=== PATIENT | female | born 1965 | race Caucasian/White ===

== ENCOUNTER → 2018-03-30 | Outpatient (CLI) | payer BC ==
[~2018-03-30] MED LIST: ASCO1CAP3 PO; CHOL100027 PO; GLC500 PO; INSDGI SC; LEVO150T48 PO; LISI5TAB3 PO; LORA5TAB3 PO; MULT-506 PO; NVLGI SC; OMEGCAP2 PO; PRAV20TA PO; SERT50TA PO
--- NOTE | 2018-03-30 10:41 | DIAGNOSTIC IMAGING REPORT ---
R FOOT MIN 3 VIEWS ROUTINE CLINICAL HISTORY: CLOSED FRACTURE OF TARSAL BONE OF RIGHT FOOT COMPARISON: None. DISCUSSION: The bones and joint spaces appear intact. There is no evidence of fracture, dislocation or bony disease. There is no evidence for soft tissue swelling. IMPRESSION: Negative study. Small heel spur. The above report was generated using voice recognition software. It may contain grammatical, syntax or spelling errors. Electronically signed by: Ramirez Red M.D. 03/30/2018 10:39 AM Dictated Date/Time: 03/30/2018 10:38 AM
== END | disposition home or self-care (01) ==
LOC: C.RAD1850 10:16
PROVIDERS: ATTEND Family Medicine
DX: S92.201A Fracture of unspecified tarsal bone(s) of right foot, initial encounter for closed fracture (principal); X58.XXXA Exposure to other specified factors, initial encounter; M77.31 Calcaneal spur, right foot

== ENCOUNTER 2018-10-29 01:03 | Inpatient (IN) ==
[2018-10-29] MEDS ORDERED: KETOROLAC TROMETHAMINE 15 MG/ML VIAL IV STA (01:26)
[2018-10-29] MEDS ORDERED: ONDANSETRON INJ 2 MG/ML 2 ML VIAL IV STA (01:26)
[2018-10-29] MEDS ORDERED: SODIUM CHLORIDE 0.9% 1000ML 1,000 ML IV SCH (01:30)
--- NOTE | 2018-10-29 01:31 | Emergency Department Note ---
History of Present Illness General Chief complaint: Nausea Stated complaint: NAUSEA,BLOATED,ABD PAIN,LOW BACK PAIN Source: patient Mode of arrival: ambulatory Limitations: no limitations History of Present Illness Maximum Pain Intensity: 8 This patient is a 52-year-old female who presents to the emergency department complaining of abdominal pain and bloating. The patient reports that her symptoms started 3 days ago. She reports that she woke up in the middle of the night due to abdominal pain and bloating. She states that over the next few days, her symptoms were mild and she had some diarrhea. She states that throughout the day today, she had worsening of her symptoms. She has had a decreased appetite. She reports that she ate some soup for dinner and vomited afterward. She has tried Maalox for her symptoms without any improvement. She reports her symptoms seem to be slightly worsened with eating. She reports a history of IBS. She has a history of exploratory laparoscopy for endometriosis and 2 C-sections. She denies any other abdominal surgeries or issues. She rates her overall discomfort an 8/10. She denies any urinary symptoms or fevers. Home Medications Home Medications Medication Instructions Recorded Confirmed Type aspirin 81 mg PO DAILY 10/29/18 10/29/18 History cholecalciferol (vitamin D3) 2,000 unit PO DAILY 10/29/18 10/29/18 History [Vitamin D3] insulin aspart U-100 [Novolog 0 unit SUBCUT DIRECTED 10/29/18 10/29/18 History Flexpen U-100 Insulin] levothyroxine 150 mcg PO 6XWK 10/29/18 10/29/18 History levothyroxine 200 mcg PO DIRECTED 10/29/18 10/29/18 History lisinopril 40 mg PO DAILY 10/29/18 10/29/18 History metformin 1,000 mg PO BID 10/29/18 10/29/18 History multivitamin 1 tab PO DAILY 10/29/18 10/29/18 History omega 5-xlh-eld-fish oil [[place]-3] 1 cap PO DAILY 10/29/18 10/29/18 History pravastatin [Pravachol] 40 mg PO DAILY 10/29/18 10/29/18 History sertraline 100 mg PO DAILY 10/29/18 10/29/18 History Allergies Allergy/AdvReac Type Severity Reaction Status Date / Time clavulanic acid Allergy Mild liver Verified 10/29/18 02:04 damage Penicillins Allergy Mild liver Verified 10/29/18 02:04 damage BETALACTAMASEIN Allergy Mild Unknown Uncoded 10/29/18 02:04 Past Med/Surg History Medical History Hyperlipemia Hypertension Hypothyroid Type 2 diabetes mellitus insulin dependent Social History marital status: Current Living Situation: Family Feels Safe at Home: Yes Smoking Status: Never smoker Review of Systems A total of 10 systems reviewed and were otherwise negative Physical Exam Vital Signs Vital Signs - 24 hr 10/29/18 01:11 10/29/18 02:52 10/29/18 04:30 Temperature 36.8 C Temperature Source Oral Sepsis Recent Fever Within 48 Hours No Sepsis Action Taken by Nursing No Action Required Pulse Rate 89 Pulse Rate [Right Finger] 85 82 Pulse Rhythm [Right Finger] Regular Regular Pulse Strength [Right Finger] Normal Normal Respiratory Rate 18 18 16 Respiratory Effort / Characteristics Non-Labored Non-Labored Non-Labored Respiratory Depth Normal Normal Normal Respiratory Pattern Regular Blood Pressure 144/80 H Blood Pressure [Left Arm] 128/66 124/75 Blood Pressure Mean 101 Blood Pressure Mean [Left Arm] 86 91 Blood Pressure Position Sitting Blood Pressure Position [Left Arm] Sitting Lying Pulse Oximetry 95 96 96 Oxygen Delivery Method Room Air Room Air Room Air 10/29/18 05:09 Temperature Temperature Source Sepsis Recent Fever Within 48 Hours Sepsis Action Taken by Nursing Pulse Rate 85 Pulse Rate [Right Finger] Pulse Rhythm [Right Finger] Pulse Strength [Right Finger] Respiratory Rate 16 Respiratory Effort / Characteristics Respiratory Depth Respiratory Pattern Blood Pressure 124/75 Blood Pressure [Left Arm] Blood Pressure Mean Blood Pressure Mean [Left Arm] Blood Pressure Position Blood Pressure Position [Left Arm] Pulse Oximetry 96 Oxygen Delivery Method Room Air VITALS: Vitals are noted on the nurse's note and reviewed by myself. Vital signs stable. GENERAL: This is a 52-year-old female, in no acute distress, nondiaphoretic, well-developed well-nourished. SKIN: The skin was without rashes. EARS: External auditory canals clear, tympanic membranes pearly lemus without erythema or effusion bilaterally. EYES: Pupils equal round and reactive to light and accommodation. Conjunctivae without injection, sclerae without icterus. MOUTH: Mucous membranes moist. Tonsils are not enlarged. Pharynx without erythema or exudate. NECK: Supple without nuchal rigidity. No lymphadenopathy. HEART: Regular rate and rhythm without murmurs gallops or rubs. LUNGS: Clear to auscultation bilaterally without wheezes, rales or rhonchi. ABDOMEN: Positive bowel sounds x 4.. Soft, mild generalized tenderness to palpation. No guarding or rebound tenderness. NEURO: Patient was alert and oriented to person place and time. Course Administered Medications Discontinued Medications Sodium Chloride (Nss 1000ml) 1,000 mls @ 999 mls/hr IV .[id number] DENISE Stop: 10/29/18 02:30 Last Infusion: 10/29/18 04:01 Dose: 0 mls/hr Documented by: [id number] Admin: 10/29/18 01:47 Dose: 999 mls/hr Documented by: [id number] Ciprofloxacin (Cipro) 400 mg in 200 mls @ 200 mls/hr IV NOW STA Stop: 10/29/18 04:39 Last Admin: 10/29/18 03:58 Dose: 200 mls/hr Documented by: [id number] Metronidazole (Flagyl) 500 mg in 100 mls @ 100 mls/hr IV NOW STA Stop: 10/29/18 04:39 Last Admin: 10/29/18 03:58 Dose: 100 mls/hr Documented by: [id number] Ioversol (Optiray 320 100ml) 100 ml IV ONCE PRN PRN Reason: Interaction Checking Stop: 11/02/18 02:49 Last Admin: 10/29/18 02:50 Dose: 93 ml Documented by: [id number] Ketorolac Tromethamine (Toradol) 15 mg IV NOW STA Stop: 10/29/18 01:27 Last Admin: 10/29/18 01:47 Dose: 15 mg Documented by: [id number] Ondansetron HCl (Zofran) 4 mg IV NOW STA Stop: 10/29/18 01:27 Last Admin: 10/29/18 01:47 Dose: 4 mg Documented by: [id number] Medical Decision Making Differential Diagnosis Differential diagnosis includes pancreatitis, cholecystitis, bowel obstruction, malignancy/mass, enteritis, PUD, among others. Home Medications Current Medication List: was personally reviewed by me Laboratory Data Attestation: I reviewed the patient's lab results. Result diagrams: 10/29/18 01:45 10/29/18 01:45 Lab Results 10/29/18 10/29/18 10/29/18 Range/Units 01:42 01:45 01:45 WBC 10.45 (4.8-10.8) K/uL RBC 5.02 (4.2-5.4) M/uL Hgb 14.6 (12.0-16.0) g/dL Hct 41.7 (37-47) % MCV 83.1 (80-100) fL MCH 29.1 (25-34) pg MCHC 35.0 (32-36) g/dL RDW Std Deviation 40.0 (36.4-46.3) fL RDW Coeff of [place] 13.3 (11.5-14.5) % Plt Count 308 (130-400) K/uL MPV 9.8 (7.4-10.4) fL Immature Gran % (Auto) 0.3 % Neut % (Auto) 73.9 % Lymph % (Auto) 9.4 % [place] % (Auto) 14.7 % Eos % (Auto) 1.6 % Baso % (Auto) 0.1 % Immature Gran # (Auto) 0.03 H (0.00-0.02) K/uL Neut # (Auto) 7.72 H (1.4-6.5) K/uL Lymph # (Auto) 0.98 L (1.2-3.4) K/uL [place] # (Auto) 1.54 H (0.11-0.59) K/uL Eos # (Auto) 0.17 (0-0.5) K/uL Baso # (Auto) 0.01 (0-0.2) K/uL PT 10.1 (9.0-12.0) Seconds INR 1.0 (0.9-1.1) APTT 25.1 (21.0-31.0) Seconds PTT Ratio 0.9 Sodium 140 (136-145) mmol/L Potassium 3.8 (3.5-5.1) mmol/L Chloride 106 (98-107) mmol/L Carbon Dioxide 28 (21-32) mmol/L Anion Gap 6.0 (3-11) BUN 12 (7-18) mg/dl Creatinine 0.72 (0.6-1.2) mg/dl Est Cr Clr Drug Dosing 102.0 ml/min Est GFR ( Amer) 110.0 Est GFR (Non-Af Amer) 94.9 BUN/Creatinine Ratio 17.1 (10-20) Glucose 138 H (70-99) mg/dl Calcium 8.7 (8.5-10.1) mg/dl Total Bilirubin 1.9 H (0.2-1) mg/dl AST 1028 H (15-37) U/L ALT 613 H (12-78) U/L Alkaline Phosphatase 200 H (45-117) U/L Total Protein 7.2 (6.4-8.2) gm/dl Albumin 3.4 (3.4-5.0) gm/dl Globulin 3.8 (2.5-4.0) gm/dl Albumin/Globulin Ratio 0.9 (0.9-2) Lipase 105 (73-393) U/L Urine Color Urine Appearance (Clear) Urine pH (4.5-7.5) Ur Specific [place] (1.000-1.030) Urine Protein (Negative) Urine Glucose (UA) (Negative) Urine Ketones (Negative) Urine Blood (Negative) Urine Nitrite (Negative) Urine Bilirubin (Negative) Urine Urobilinogen (Negative) Ur Leukocyte Esterase (Negative) Urine WBC (Auto) (0-5) /hpf Urine RBC (Auto) (0-4) /hpf U Hyaline Cast (Auto) (0-5) /lpf U Epithel Cells (Auto) (0-5) /lpf Urine Bacteria (Auto) (Negative) 10/29/18 Range/Units 02:50 WBC (4.8-10.8) K/uL RBC (4.2-5.4) M/uL Hgb (12.0-16.0) g/dL Hct (37-47) % MCV (80-100) fL MCH (25-34) pg MCHC (32-36) g/dL RDW Std Deviation (36.4-46.3) fL RDW Coeff of [place] (11.5-14.5) % Plt Count (130-400) K/uL MPV (7.4-10.4) fL Immature Gran % (Auto) % Neut % (Auto) % Lymph % (Auto) % [place] % (Auto) % Eos % (Auto) % Baso % (Auto) % Immature Gran # (Auto) (0.00-0.02) K/uL Neut # (Auto) (1.4-6.5) K/uL Lymph # (Auto) (1.2-3.4) K/uL [place] # (Auto) (0.11-0.59) K/uL Eos # (Auto) (0-0.5) K/uL Baso # (Auto) (0-0.2) K/uL PT (9.0-12.0) Seconds INR (0.9-1.1) APTT (21.0-31.0) Seconds PTT Ratio Sodium (136-145) mmol/L Potassium (3.5-5.1) mmol/L Chloride (98-107) mmol/L Carbon Dioxide (21-32) mmol/L Anion Gap (3-11) BUN (7-18) mg/dl Creatinine (0.6-1.2) mg/dl Est Cr Clr Drug Dosing ml/min Est GFR ( Amer) Est GFR (Non-Af Amer) BUN/Creatinine Ratio (10-20) Glucose (70-99) mg/dl Calcium (8.5-10.1) mg/dl Total Bilirubin (0.2-1) mg/dl AST (15-37) U/L ALT (12-78) U/L Alkaline Phosphatase (45-117) U/L Total Protein (6.4-8.2) gm/dl Albumin (3.4-5.0) gm/dl Globulin (2.5-4.0) gm/dl Albumin/Globulin Ratio (0.9-2) Lipase (73-393) U/L Urine Color Dark Yellow Urine Appearance Cloudy H (Clear) Urine pH 7.5 (4.5-7.5) Ur Specific [place] 1.024 (1.000-1.030) Urine Protein Negative (Negative) Urine Glucose (UA) Negative (Negative) Urine Ketones Negative (Negative) Urine Blood Negative (Negative) Urine Nitrite Positive H (Negative) Urine Bilirubin 1+ H (Negative) Urine Urobilinogen Negative (Negative) Ur Leukocyte Esterase 2+ H (Negative) Urine WBC (Auto) >30 H (0-5) /hpf Urine RBC (Auto) 0-4 (0-4) /hpf U Hyaline Cast (Auto) 10-30 H (0-5) /lpf U Epithel Cells (Auto) 10-20 H (0-5) /lpf Urine Bacteria (Auto) 2+ H (Negative) Imaging Data Attestation: I personally reviewed and interpreted this imaging study as follows: Radiologist's Impression: CT ABDOMEN & PELVIS With Contrast: Cholelithiasis without cholecystitis. The common bile duct is normal in caliber. There is a faint calcification possibly within the distal common bile duct measuring 4 mm which could represent choledocholithiasis. Consider MRCP or ERCP. No pancreatitis. Scattered areas of lobulated low-density in the left hepatic lobe and caudate which could represent focal fatty deposition. Normal appendix. No bowel wall thickening or obstruction. No free air or free fluid. Radiologist: Abdiaziz Ramirez MD Blood Pressure Blood Pressure Findings: Normal blood pressure Blood Pressure Disposition: did not require urgent referral MDM Narrative The patient is a 52-year-old female who presents today complaining of abdominal pain. Labs revealed WBC count in the upper limits of normal. LFTs are elevated, with AST 1028, ALT 613, alkaline phosphatase 200 and total bilirubin 1.9. CT shows evidence of cholelithiasis and possible stone within the common bile duct. This finding along with her transaminitis does suggest choledocholithiasis. Patient will be admitted for this. She also has evidence of urinary tract infection. I spoke with the pharmacist regarding antibiotic choice given patient's allergies and they recommended ciprofloxacin and Flagyl. Patient was given initial doses of these. She did receive IV fluids, Zofran and Toradol with improvement of symptoms. She will be admitted to the [facility] service for further evaluation and care. Impression & Plan Choledocholithiasis Discharge Plan Visit Data Chief Complaint: Nausea Stated Complaint: NAUSEA,BLOATED,ABD PAIN,LOW BACK PAIN ED Provider: Jorge Sterling ED Midlevel Provider: Tash Wilson Discharge Problem: Choledocholithiasis Discharge Instructions Interventions: ED Discharge Assessment Last Done: 10/29/18 05:09
[2018-10-29 01:54] LABS: Basophils # (auto) 0.01 K/uL (0-0.2); Basophils % (auto) 0.1 %; Eosinophils # (auto) 0.17 K/uL (0-0.5); Eosinophils % (auto) 1.6 %; Hematocrit (blood only) 41.7 % (37-47); Hemoglobin 14.6 g/dL (12.0-16.0); Immature Granulocytes # (auto) 0.03 K/uL (0.00-0.02); Immature Granulocytes % (auto) 0.3 %; Lymphocytes # (auto) 0.98 K/uL (1.2-3.4); Lymphocytes % (auto) 9.4 %; Mean Corpuscular Volume 83.1 fL (80-100); Mean Platelet Volume 9.8 fL (7.4-10.4); Monocytes # (auto) 1.54 K/uL (0.11-0.59); Monocytes % (auto) 14.7 %; Neutrophils # (auto) 7.72 K/uL (1.4-6.5); Neutrophils % (auto) 73.9 %; Platelet Count 308 K/uL (130-400); RDW Coefficient of Variation 13.3 % (11.5-14.5); Red Blood Count 5.02 M/uL (4.2-5.4); White Blood Count 10.45 K/uL (4.8-10.8)
[2018-10-29 02:15] LABS: Albumin Level 3.4 gm/dl (3.4-5.0); BUN Creatinine Ratio 17.1 (10-20); Calcium 8.7 mg/dl (8.5-10.1); Est GFR (Non-African American) 94.9; Potassium 3.8 mmol/L (3.5-5.1)
[2018-10-29 02:23] LABS: Albumin Globulin Ratio 0.9 (0.9-2); Bilirubin,Total 1.9 mg/dl (0.2-1); Globulin 3.8 gm/dl (2.5-4.0); Total Protein 7.2 gm/dl (6.4-8.2)
[2018-10-29] MEDS ORDERED: IOVERSOL 100ml IV PRN (02:50)
[2018-10-29 03:12] LABS: Appearance Urine Cloudy (Clear); Bacteria Urine Automated 2+ (Negative); Blood Urine Negative (Negative); Color Urine Dark Yellow; Glucose Urine UA Negative (Negative); Ketones Urine Negative (Negative); Leukocyte Esterase Urine 2+ (Negative); Nitrite Urine Positive (Negative); RBC Urine Automated 0-4 /hpf (0-4); Specific Gravity Urine 1.024 (1.000-1.030); Urobilinogen Urine Negative (Negative); WBC Urine Automated >30 /hpf (0-5); pH Urine 7.5 (4.5-7.5)
[2018-10-29 03:18] LABS: Bilirubin Urine 1+ (Negative); Ictotest Urine Positive (Negative); Protein Urine Negative (Negative)
[2018-10-29 03:34] LABS: Partial Thromboplastin Ratio 0.9; Partial Thromboplastin Time 25.1 Seconds (21.0-31.0); Prothrombin Time 10.1 Seconds (9.0-12.0)
[2018-10-29] MEDS ORDERED: metroNIDAZOLE 500 MG/100 ML BAG IV STA (03:40)
[2018-10-29] MEDS ORDERED: CIPROFLOXACIN 400 MG/200 ML BAG IV STA (03:40)
--- NOTE | 2018-10-29 05:24 | History & Physical Report ---
Date of Service October 29, 2018 Assessment & Plan (1) Choledocholithiasis with obstruction: Choledocholithiasis/abnormal liver function tests/normal lipase-- Admit to [facility]. NPO NSS + KCl 20 mEq at 100 mils per hour Continue Cipro 400 mg IV every 12 hours and Flagyl 500 mg IV every 8 hours begun in ED. Morphine sulfate 4 mg IV every 3 hours as needed severe pain. Pantoprazole 40 mg IV daily. Zofran 4 mg IV every 6 hours as needed. Order an MRCP to be done now. Serial CBC with differential, chemistry profile and magnesium levels. Consult gastroenterology Dr. Evans regarding possible ERCP. Present on Admission?: Yes (2) Abnormal liver function tests: See above. Present on Admission?: Yes (3) Insulin-requiring or dependent type II diabetes mellitus: Hold metformin. Placed on Accu-Cheks before meals and at bedtime with NovoLog coverage per scale. Present on Admission?: Yes (4) Hypothyroidism (acquired): Hold oral levothyroxine. Start levothyroxine 75 mcg IV daily if remains NPO. Present on Admission?: Yes (5) Hypertension: Hold aspirin 81 mg daily and lisinopril 40 mg p.o. daily while n.p.o. Hydralazine 10 mg IV every 4 hours as needed systolic blood pressure above 160 Present on Admission?: Yes (6) Hyperlipidemia: Hold pravastatin 40 mg p.o. daily while n.p.o. Present on Admission?: Yes (7) Depression: Hold sertraline 100 mg p.o. daily while n.p.o. Present on Admission?: Yes History of Present Illness Chief Complaint: The patient presents to the emergency department with worsening abdominal discomfort and bloating over the past week, with an episode of nausea and vomiting tonight, that led to her visit to the ED. Primary Care Provider: Magnus Donald The patient is a 52-year-old female with a past medical history including diabetes mellitus, hypertension, hypothyroidism, hyperlipidemia and depression, who presents to the emergency department with 1 week of worsening GI symptoms of abdominal distention, and bloating, with and episode of nausea and vomiting today prior to arrival. She has not had any recent travels or sick exposures. She has not had these type of symptoms in the past. She has not eaten any new or questionable food intake. She did have the beginning of loose stools over the past 3 days. Allergies Allergy/AdvReac Type Severity Reaction Status Date / Time clavulanic acid Allergy Mild liver Verified 10/29/18 02:04 damage Penicillins Allergy Mild liver Verified 10/29/18 02:04 damage BETALACTAMASEIN Allergy Mild Unknown Uncoded 10/29/18 02:04 Home Medications Home Medications Medication Instructions Recorded Confirmed Type aspirin 81 mg PO DAILY 10/29/18 10/29/18 History cholecalciferol (vitamin D3) 2,000 unit PO DAILY 10/29/18 10/29/18 History [Vitamin D3] insulin aspart U-100 [Novolog 0 unit SUBCUT DIRECTED 10/29/18 10/29/18 History Flexpen U-100 Insulin] levothyroxine 150 mcg PO 6XWK 10/29/18 10/29/18 History levothyroxine 200 mcg PO DIRECTED 10/29/18 10/29/18 History lisinopril 40 mg PO DAILY 10/29/18 10/29/18 History metformin 1,000 mg PO BID 10/29/18 10/29/18 History multivitamin 1 tab PO DAILY 10/29/18 10/29/18 History omega 4-fcz-aeq-fish oil [[place]-3] 1 cap PO DAILY 10/29/18 10/29/18 History pravastatin [Pravachol] 40 mg PO DAILY 10/29/18 10/29/18 History sertraline 100 mg PO DAILY 10/29/18 10/29/18 History Past Med/Surg History Medical History Hyperlipemia Hypertension Hypothyroid Type 2 diabetes mellitus insulin dependent Social History marital status: Current Living Situation: Family Feels Safe at Home: Yes Smoking Status: Never smoker Review of Systems The patient denies chest pain, palpitations, shortness of breath, dyspnea on exertion, cough, lower extremity swelling, sore throat, fevers, chills, sweats, blood in urine or stool, dysuria, urinary frequency or urgency, lightheadedness, dizziness, headache, memory loss, loss of consciousness, rash, abnormal bruising or bleeding, imbalance, focal or generalized weakness, numbness or tingling in arms or legs, generalized arthralgias or myalgias, back or neck pain, or night sweats. The review of systems is otherwise negative other than for that already noted above, and at least 10 systems have been reviewed. Physical Exam Vital Signs (Past 24 Hours): Last Vital Signs Temp 36.8 C 10/29/18 01:11 Pulse 82 10/29/18 04:30 Resp 16 10/29/18 04:30 BP 124/75 10/29/18 04:30 Pulse Ox 96 10/29/18 04:30 Physical Exam: The patient is awake, alert and oriented 3, well developed and well nourished, normocephalic and atraumatic, lying in bed and in no acute distress. HEENT--PERRL, EOMI, mucous membranes and oropharynx dry. Neck--supple. No JVD. No bruits. Thyroid normal, trachea midline, no adenopathy. Heart--normal S1 and S2. No murmurs, rubs or gallops. Lungs--clear bilaterally, no respiratory distress, no accessory muscle use. Abdomen--normal bowel sounds and soft. Mild epigastric right upper quadrant tenderness. Mildly distended and tympanitic. Extremities--no cyanosis or clubbing. No edema. There are good distal pulses b/l. Dermatologic--normal skin turgor, normal color, no abnormal lymph nodes, no rash. Neurologic--cranial nerves II through XII grossly intact. Rheumatologic--normal range of motion. Psychiatric--normal affect. Results & Data Laboratory Results Laboratory Results WBC 10.45 K/uL (4.8-10.8) 10/29/18 01:45 RBC 5.02 M/uL (4.2-5.4) 10/29/18 01:45 Hgb 14.6 g/dL (12.0-16.0) 10/29/18 01:45 Hct 41.7 % (37-47) 10/29/18 01:45 MCV 83.1 fL (80-100) 10/29/18 01:45 MCH 29.1 pg (25-34) 10/29/18 01:45 MCHC 35.0 g/dL (32-36) 10/29/18 01:45 RDW Std Deviation 40.0 fL (36.4-46.3) 10/29/18 01:45 RDW Coeff of [place] 13.3 % (11.5-14.5) 10/29/18 01:45 Plt Count 308 K/uL (130-400) 10/29/18 01:45 MPV 9.8 fL (7.4-10.4) 10/29/18 01:45 Immature Gran % (Auto) 0.3 % 10/29/18 01:45 Neut % (Auto) 73.9 % 10/29/18 01:45 Lymph % (Auto) 9.4 % 10/29/18 01:45 [place] % (Auto) 14.7 % 10/29/18 01:45 Eos % (Auto) 1.6 % 10/29/18 01:45 Baso % (Auto) 0.1 % 10/29/18 01:45 Immature Gran # (Auto) 0.03 K/uL (0.00-0.02) H 10/29/18 01:45 Neut # (Auto) 7.72 K/uL (1.4-6.5) H 10/29/18 01:45 Lymph # (Auto) 0.98 K/uL (1.2-3.4) L 10/29/18 01:45 [place] # (Auto) 1.54 K/uL (0.11-0.59) H 10/29/18 01:45 Eos # (Auto) 0.17 K/uL (0-0.5) 10/29/18 01:45 Baso # (Auto) 0.01 K/uL (0-0.2) 10/29/18 01:45 PT 10.1 Seconds (9.0-12.0) 10/29/18 01:42 INR 1.0 (0.9-1.1) 10/29/18 01:42 APTT 25.1 Seconds (21.0-31.0) 10/29/18 01:42 PTT Ratio 0.9 10/29/18 01:42 Sodium 140 mmol/L (136-145) 10/29/18 01:45 Potassium 3.8 mmol/L (3.5-5.1) 10/29/18 01:45 Chloride 106 mmol/L (98-107) 10/29/18 01:45 Carbon Dioxide 28 mmol/L (21-32) 10/29/18 01:45 Anion Gap 6.0 (3-11) 10/29/18 01:45 BUN 12 mg/dl (7-18) 10/29/18 01:45 Creatinine 0.72 mg/dl (0.6-1.2) 10/29/18 01:45 Est Cr Clr Drug Dosing 102.0 ml/min 10/29/18 01:45 Est GFR ( Amer) 110.0 10/29/18 01:45 Est GFR (Non-Af Amer) 94.9 10/29/18 01:45 BUN/Creatinine Ratio 17.1 (10-20) 10/29/18 01:45 Glucose 138 mg/dl (70-99) H 10/29/18 01:45 Calcium 8.7 mg/dl (8.5-10.1) 10/29/18 01:45 Total Bilirubin 1.9 mg/dl (0.2-1) H 10/29/18 01:45 AST 1028 U/L (15-37) H 10/29/18 01:45 ALT 613 U/L (12-78) H 10/29/18 01:45 Alkaline Phosphatase 200 U/L (45-117) H 10/29/18 01:45 Total Protein 7.2 gm/dl (6.4-8.2) 10/29/18 01:45 Albumin 3.4 gm/dl (3.4-5.0) 10/29/18 01:45 Globulin 3.8 gm/dl (2.5-4.0) 10/29/18 01:45 Albumin/Globulin Ratio 0.9 (0.9-2) 10/29/18 01:45 Lipase 105 U/L (73-393) 10/29/18 01:45 Urine Color Dark Yellow 10/29/18 02:50 Urine Appearance Cloudy (Clear) H 10/29/18 02:50 Urine pH 7.5 (4.5-7.5) 10/29/18 02:50 Ur Specific [place] 1.024 (1.000-1.030) 10/29/18 02:50 Urine Protein Negative (Negative) 10/29/18 02:50 Urine Glucose (UA) Negative (Negative) 10/29/18 02:50 Urine Ketones Negative (Negative) 10/29/18 02:50 Urine Blood Negative (Negative) 10/29/18 02:50 Urine Nitrite Positive (Negative) H 10/29/18 02:50 Urine Bilirubin 1+ (Negative) H 10/29/18 02:50 Urine Urobilinogen Negative (Negative) 10/29/18 02:50 Ur Leukocyte Esterase 2+ (Negative) H 10/29/18 02:50 Urine WBC (Auto) >30 /hpf (0-5) H 10/29/18 02:50 Urine RBC (Auto) 0-4 /hpf (0-4) 10/29/18 02:50 U Hyaline Cast (Auto) 10-30 /lpf (0-5) H 10/29/18 02:50 U Epithel Cells (Auto) 10-20 /lpf (0-5) H 10/29/18 02:50 Urine Bacteria (Auto) 2+ (Negative) H 10/29/18 02:50 Medications Administered Home Medications Medication Instructions Recorded Confirmed aspirin 81 mg PO DAILY 10/29/18 10/29/18 cholecalciferol (vitamin D3) 2,000 unit PO DAILY 10/29/18 10/29/18 [Vitamin D3] insulin aspart U-100 [Novolog 0 unit SUBCUT DIRECTED 10/29/18 10/29/18 Flexpen U-100 Insulin] levothyroxine 150 mcg PO 6XWK 10/29/18 10/29/18 levothyroxine 200 mcg PO DIRECTED 10/29/18 10/29/18 lisinopril 40 mg PO DAILY 10/29/18 10/29/18 metformin 1,000 mg PO BID 10/29/18 10/29/18 multivitamin 1 tab PO DAILY 10/29/18 10/29/18 omega 8-lzo-dym-fish oil [[place]-3] 1 cap PO DAILY 10/29/18 10/29/18 pravastatin [Pravachol] 40 mg PO DAILY 10/29/18 10/29/18 sertraline 100 mg PO DAILY 10/29/18 10/29/18 Code Status & VTE Plan Code Status Full code VTE Prophylaxis Plan VTE Prophylaxis will be ordered: Yes
[2018-10-29] MEDS ORDERED: GLUCOSE 40% GEL 15 GM TUBE PO PRN (06:02)
[2018-10-29] MEDS ORDERED: ONDANSETRON INJ 2 MG/ML 2 ML VIAL IV PRN ×2 (06:02→15:59)
[2018-10-29] MEDS ORDERED: GLUCOSE 10 TABS/TUBE PO PRN (06:02)
[2018-10-29] MEDS ORDERED: GLUCAGON FOR INJ 1 MG VIAL SQ PRN (06:02)
[2018-10-29] MEDS ORDERED: CARBOHYDRATES FOR HYPOGLYCEMIA PO PRN (06:02)
[2018-10-29] MEDS ORDERED: MoRPHine SULFATE 4 MG/ML 1 ML CARP\\VIAL IV PRN (06:02)
[2018-10-29] MEDS ORDERED: DEXTROSE 50% 50 ML SYRINGE IV PRN (06:02)
[2018-10-29] MEDS ORDERED: Nursing to Pharmacy Communication ONE ×2 (06:38→20:21)
--- NOTE | 2018-10-29 06:45 | CT Scan Report ---
ABDOMEN AND PELVIS CT WITH IV CONTRAST CT DOSE: 731.95 mGy.cm HISTORY: Acute generalized abdominal pain with nausea abdominal pain, bloating, nausea TECHNIQUE: Multiaxial CT images of the abdomen and pelvis were performed following the use of intrave nous contrast. A dose lowering technique was utilized adhering to the principles of ALARA. COMPARISON STUDY: MRCP of same day, CTA chest 05/01/2013. FINDINGS: Mild subsegmental bibasilar atelectasis. Calcific granuloma of the basal right lower lobe. There is n o pneumatosis or pneumoperitoneum. Imaged inferior cardiac chambers appear unremarkable. Lobular hypodensity about the left hepatic lobe appears benign conglomerate measuring up to approxima tely 1.9 cm. Additional ill-defined lobular areas of decreased attenuation noted within the caudate l obe measuring up to 2.5 cm. These areas may reflect focal fatty infiltration. Liver otherwise appears unremarkable. No intrahepatic biliary ductal dilation. The spleen, and adrenal glands appear unremar kable. Lobular cystic density foci noted about the superior pancreatic tail splenic hilum measuring u p to 1.4 cm which appear unchanged from 2013 suggestive of benign etiology such as a lymphatic malfor mation. Pancreas otherwise appears unremarkable. No pancreatic ductal dilation. Cholelithiasis withou t CT evidence of acute cholecystitis. Mild dilation of the common bile duct, 8 mm with choledocholith iasis. At least 2 stones are noted in the common bile duct measuring up to 4 mm. Subcentimeter right renal cysts. Kidneys are otherwise unremarkable. No renal or ureteral calculi or obstructive uropathy. Urinary bladder, uterus and adnexa appear unremarkable. Aorta and IVC are unrem arkable. There is no adenopathy. No bowel obstruction or focal bowel wall thickening. Terminal ileum and appendix appear normal. No as cites or mesenteric inflammation. Diastases recti. Soft tissues appear unremarkable. Degenerative bari nges of the spine. IMPRESSION: 1. Choledocholithiasis with mild dilation of the common bile duct measuring 8 mm. Further evaluation with ERCP recommended. 2. Cholelithiasis without CT evidence of acute cholecystitis. 3. No bowel obstruction or focal bowel wall thickening. 4. Additional findings as above. Electronically signed by: Michael Pompa M.D. 10/29/2018 6:44 AM
[2018-10-29] MEDS ORDERED: INSULIN ASPART 100 UNITS/ML 3 ML PEN SC SCH (07:30)
[2018-10-29] MEDS: NSS + 20MEQ KCL 20 MEQ/1,000 ML BAG IV SCH ×2 (07:42→16:47)
--- NOTE | 2018-10-29 08:13 | Magnetic Resonance Report ---
MR MRCP CLINICAL HISTORY: 52 years-old Female presenting with CHOLEDOCHOLITHIASIS, bloating, diarrhea, nausea , vomiting, symptoms started Bill, right-sided abdominal pain radiating into the back. TECHNIQUE: Multisequence, multiplanar MR imaging of the abdomen was performed without the use of intr avenous contrast. Dedicated MRCP protocol was utilized. 3-D volumetric and/or maximum intensity proje ction (MIP) images were subsequently reconstructed for review. IV contrast: None. COMPARISON: CT performed earlier the same day. FINDINGS: Localizer images: Unremarkable. Lung bases: Lung base clear. Normal heart size. No pericardial or pleural effusion. Liver: Normal morphology. No liver lesion. Patent hepatic vasculature. Biliary: Choledocholithiasis in the distal common bile duct level the pancreatic head. Mild intrahepa tic or extrahepatic biliary ductal dilatation. Common duct measures 7 mm in diameter in the midportio n. Gallbladder contains gallstones. No gallbladder wall thickening, abnormal distention, or perichole cystic fluid or inflammatory change. Pancreas: Normal. Spleen: Normal. Adrenal glands: Normal. Kidneys and ureters: Normal. No hydronephrosis. Bowel: Normal. No bowel obstruction. Peritoneal cavity: No free fluid. Lymph nodes: No enlarged lymph nodes in the abdomen. Vasculature: Aorta and IVC patent and normal in caliber. Abdominal wall: Normal. Musculoskeletal: Normal. IMPRESSION: 1. Choledocholithiasis and cholelithiasis with mild intrahepatic and extra hepatic biliary ductal di latation. No evidence of cholecystitis. ERCP to be considered. Electronically signed by: Sanford Bray M.D. 10/29/2018 8:12 AM
[2018-10-29] MEDS: metroNIDAZOLE 500 MG/100 ML BAG IV SCH ×2 (11:09→20:50)
[2018-10-29] MEDS: PANTOprazole 40 MG in SYRINGE 0 ML IV SCH (11:09)
[2018-10-29] MEDS: INSULIN ASPART 100 UNITS/ML 3 ML PEN SC SCH ×3 (12:09→21:01)
[2018-10-29 13:27] LABS: Pregnancy Test, Urine Negative (Negative)
[2018-10-29] MEDS ORDERED: INDOMETHACIN 50 MG SUPP PR STA (14:06)
[2018-10-29] MEDS ORDERED: MIDAZOLAM HCL 1 MG/ML 2ML VIAL ONE (14:23)
[2018-10-29] MEDS ORDERED: CISATRACURIUM BESYLATE IV SOLN 2 MG/ML 10 ML VIAL IV ONE (14:23)
[2018-10-29] MEDS ORDERED: PROPOFOL IV EMULSION 10 MG/ML 20 ML VIAL IV ONE (14:23)
[2018-10-29] MEDS ORDERED: fentaNYL citrate 100 MCG/2 ML VIAL ONE (14:24)
--- NOTE | 2018-10-29 14:50 | Consultation Report ---
DATE OF CONSULTATION: 10/29/2018 GASTROINTESTINAL CONSULT NOTE REASON FOR CONSULTATION: Abdominal pain with gallstones. HISTORY OF PRESENT ILLNESS: The patient is a 52-year-old female who for the past week has been experiencing pain in the epigastric area. The patient ended up coming to the Emergency Room last night and underwent a CAT scan when her liver tests were found to be abnormal. Her alkaline phosphatase, bilirubin, AST and ALT were all elevated. She was found to have gallstones in the gallbladder as well as a couple of gallstones in her common bile duct. These were confirmed on MRCP today. She has been started on IV Cipro and Flagyl, and GI consultation has been requested for an ERCP. PAST MEDICAL HISTORY: Remarkable for type 2 diabetes, hypothyroidism, hypertension, hyperlipidemia, depression. MEDICATIONS: Include a baby aspirin every day. ALLERGIES: INCLUDE CLAVULANIC ACID, PENICILLIN AND BETA LACTAMASE. FAMILY HISTORY: Noncontributory. SOCIAL HISTORY: The patient is , does not smoke, does not consume alcohol. REVIEW OF SYSTEMS: Negative for 12 systems. PHYSICAL EXAMINATION: GENERAL: The patient appears in no acute distress. She is afebrile. ABDOMEN: Shows low transverse scar from previous 2 C-sections. There is mild tenderness and fullness in the epigastric area. No mass or rebound. LABORATORY: Shows an INR of 1. Platelet count of 308,000, white count is 10.45, hemoglobin 14.6, bilirubin is 1.9, AST 1028, ALT 613, alkaline phosphatase is 2000. Lipase is 105. IMPRESSION: The patient has abdominal pain with abnormal liver tests and has gallstones and common duct stones. I plan on scheduling an ERCP for today to remove the common duct stones. We will pretreat with Indocin suppositories and continue her IV antibiotics. She will probably need to have a laparoscopic cholecystectomy as well some point and I would recommend a surgical consultation in that regard.
--- NOTE | 2018-10-29 14:54 | Anesthesiology Consultation ---
Date of Service October 29, 2018 Assessment & Plan Chart Review Chart Review: Acceptable Risk for Surgery and Patient NOT seen in Pre Admission Testing Consults Requested none ASA ASA3 Proposed Anesthesia Anesthesia Type: MAC Spinal Risk / Benefits Reviewed With: PT / POA / Parent / Guardian, Accepts Plan and Informed Consent Obtained NPO Date Last Intake of Fluids: 10/28/18 Time Last Intake of Fluids: 19:30 Date Last Intake of Solids: 10/28/18 Time Last Intake of Solids: 19:30 History Surgery Operation Date: 10/29/18 08:45 Proposed Procedures p Endoscopic Retrograde Cholangiopancreatogram - Marcelino Evans Height/Weight Height: 5 ft 7 in Weight: 86.1 kg Allergies Allergy/AdvReac Type Severity Reaction Status Date / Time clavulanic acid Allergy Mild liver Verified 10/29/18 02:04 damage Penicillins Allergy Mild liver Verified 10/29/18 02:04 damage BETALACTAMASEIN Allergy Mild Unknown Uncoded 10/29/18 02:04 Medications Home Medications Medication Instructions Recorded Confirmed Last Taken aspirin 81 mg PO DAILY 10/29/18 10/29/18 Unknown cholecalciferol (vitamin D3) 2,000 unit PO DAILY 10/29/18 10/29/18 Unknown [Vitamin D3] insulin aspart U-100 [Novolog 0 unit SUBCUT DIRECTED 10/29/18 10/29/18 Unknown Flexpen U-100 Insulin] levothyroxine 150 mcg PO 6XWK 10/29/18 10/29/18 Unknown levothyroxine 200 mcg PO DIRECTED 10/29/18 10/29/18 Unknown lisinopril 40 mg PO DAILY 10/29/18 10/29/18 Unknown metformin 1,000 mg PO BID 10/29/18 10/29/18 Unknown multivitamin 1 tab PO DAILY 10/29/18 10/29/18 Unknown omega 9-ibm-obx-fish oil [[place]-3] 1 cap PO DAILY 10/29/18 10/29/18 Unknown pravastatin [Pravachol] 40 mg PO DAILY 10/29/18 10/29/18 Unknown sertraline 100 mg PO DAILY 10/29/18 10/29/18 Unknown Active Medications Generic Name Dose Route Start Last Admin Trade Name Freq PRN Reason Stop Dose Admin Metronidazole 500 mg in 100 mls @ 100 mls/hr 10/29/18 12:00 10/29/18 12:53 Flagyl IV 11/08/18 11:59 Infused Q8H DENISE Infusion Potassium Chloride/Sodium Chloride 20 meq in 1,000 mls @ 100 mls/hr 10/29/18 06:30 10/29/18 12:54 Normal Saline W/20 Meq Kcl IV 11/28/18 06:29 100 mls/hr .Q10H DENISE Infusion Pantoprazole Sodium 40 mg/ 10 mls @ 5 mls/min 10/29/18 11:00 10/29/18 11:09 Syringe IV 11/28/18 10:59 5 mls/min DAILY@1100 DENISE Administration Insulin Aspart 0 units 10/29/18 12:00 10/29/18 12:09 Novolog Flexpen SC 11/28/18 11:59 Not Given Q6 DENISE Past Medical History Medical History Hyperlipemia Hypertension Hypothyroid Type 2 diabetes mellitus insulin dependent Past Anesthesia History No Hx of Anesthesia Complications and No Family Hx of Anesthesia Complications History of PONV No Motion Sickness Screening History of Motion Sickness: No Social History Smoking Status: Never smoker Hx Alcohol Use: Yes alcohol intake frequency: holidays/special occasions only Hx Substance Use: No substance use type: does not use Exercise / Class Metabolic Activity III < 4 Walking/Shop/Light housework Physical Exam Vital Signs Last Vital Signs Temp 36.7 C 10/29/18 14:24 Pulse 73 10/29/18 14:24 Resp 18 10/29/18 14:24 BP 111/67 10/29/18 14:24 Pulse Ox 93 10/29/18 14:24 ENMT Mouth: no dentition abnormality Thyromental Distance: < 3.5 Finger Breadths Mallampati Class: II Neck normal visual inspection and trachea midline; neck extension not limited Respiratory normal respiratory effort Auscultation: lungs clear to auscultation bilaterally Cardiovascular Rate/Rhythm: regular rate and regular rhythm Heart Sounds: no murmur Vessels: no carotid bruit Neurologic moves all extremities Motor/Sensory: no sensory deficit Psychiatric Orientation: alert and oriented x 3 Testing Laboratory Results 10/29/18 01:45 10/29/18 01:45 PT 10.1 Seconds (9.0-12.0) 10/29/18 01:42 INR 1.0 (0.9-1.1) 10/29/18 01:42 APTT 25.1 Seconds (21.0-31.0) 10/29/18 01:42 Urine Color Dark Yellow 10/29/18 02:50 Urine Appearance Cloudy (Clear) H 10/29/18 02:50 Urine pH 7.5 (4.5-7.5) 10/29/18 02:50 Ur Specific [place] 1.024 (1.000-1.030) 10/29/18 02:50 Urine Protein Negative (Negative) 10/29/18 02:50 Urine Glucose (UA) Negative (Negative) 10/29/18 02:50 Urine Ketones Negative (Negative) 10/29/18 02:50 Urine Nitrite Positive (Negative) H 10/29/18 02:50 Ur Leukocyte Esterase 2+ (Negative) H 10/29/18 02:50 Urine WBC (Auto) >30 /hpf (0-5) H 10/29/18 02:50 Urine RBC (Auto) 0-4 /hpf (0-4) 10/29/18 02:50 U Hyaline Cast (Auto) 10-30 /lpf (0-5) H 10/29/18 02:50 U Epithel Cells (Auto) 10-20 /lpf (0-5) H 10/29/18 02:50 Urine Bacteria (Auto) 2+ (Negative) H 10/29/18 02:50 Urine Test Negative (Negative) 10/29/18 02:50 10/29/18 10/29/18 10/29/18 13:48 11:52 06:18 POC Glucose 87 77 173 H 10/29/18 02:50 Urine Test Negative
[2018-10-29] MEDS ORDERED: LACTATED RINGER'S 1,000 ML IV SCH (15:00)
--- NOTE | 2018-10-29 15:40 | Hospitalist Progress Note ---
Date of Service October 29, 2018 Assessment & Plan (1) Choledocholithiasis with obstruction: - MRCP supporting stone with transaminitis with AST/ALT 1028/613 respectively - Continue IVFs while NPO but can likely D/C if diet is tolerated - Cipro 400 mg IV BID and Flagyl 500 mg IV TID for now - likely would not be necessary on D/C as no signs of cholecystitis - Will monitor electrolytes and monitor for pancreatitis S/P ERCP - Planning on ERCP with Dr. Evans today - GI following - Discussed general surgery consultation and patient was hoping to stay in the [facility]. 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 [place] Present on Admission?: Yes (4) Hypothyroidism (acquired): - Can resume Levothyroxine 150 mcg and 200 mcg on Sundays when diet resumed Present on Admission?: Yes (5) Hypertension: - Lisinopril 40 mg daily Present on Admission?: Yes (6) Hyperlipidemia: - Pravastatin 40 mg daily Present on Admission?: Yes (7) Depression: - Sertraline 100 mg daily Present on Admission?: Yes (8) DVT prophylaxis: - Ambulation Disposition: Trend LFTs and assess diet tolerance; can consult gen surg if patient wants to consider a [facility] surgeon as she initially was thinking of keeping in the [facility]. No emergent need for cholecystectomy. Likely can be D/Cd next 1-2 days pending improvement in symptoms and LFTs Subjective Reports feeling comfortable at this time but still having bloating. States she has had some difficulty controlling her sugars lately. Follows with an process engineering intern in [place] Currently no nausea or vomiting. Awaiting ERCP Constitutional: + fatigue; no fever and no chills Eyes: no worsening vision Ear, Nose, Mouth, Throat: no sore throat and no dysphagia Respiratory: no cough and no dyspnea Cardiovascular: no chest pain, no palpitations and no edema Gastrointestinal: + abdominal pain and + bloating; no nausea, no vomiting, no constipation, no diarrhea/loose stools, no blood in stools and no melena Genitourinary (Female): no dysuria Integumentary: no rash Physical Exam Vital Signs (Past 24 Hours): Last Vital Signs Temp 36.7 C 10/29/18 14:24 Pulse 73 10/29/18 14:24 Resp 18 10/29/18 14:24 BP 111/67 10/29/18 14:24 Pulse Ox 93 10/29/18 14:24 Constitutional: well developed and well nourished; no acute distress and not ill appearing Eyes: + anicteric sclerae ENMT: Ears: no hearing impairment Neck: + trachea not midline Respiratory: normal respiratory effort, lungs clear to auscultation Cardiovascular: RRR, no murmur, no edema Gastrointestinal (Abdomen): Inspection/Auscultation: + abdomen distended and normal bowel sounds Percussion/Palpation: + abdomen tender (mild in epigastric region) and abdomen soft; no guarding and abdomen not rigid Musculoskeletal: Head/Neck/Chest: normocephalic, head atraumatic and neck supple Skin: no rashes, warm and dry Neurologic: moves all extremities Psychiatric: A+Ox3, euthymic affect
--- NOTE | 2018-10-29 15:41 | GI REPORT ---
Patient Name: Cydney Patel Procedure Date: 10/29/2018 2:45 PM Date of : 1965 Admit Type: Inpatient Age: 52 Gender: Female Attending MD: Marcelino Evans MD Procedure: ERCP Providers: Marcelino Evans MD Referring MD: Referred Self Indications: Common bile duct stone(s) Medicines: General Anesthesia Complications: No immediate complications. Estimated Blood Loss: Estimated blood loss: none. Procedure: Pre-Anesthesia Assessment: - Prior to the procedure, a History and Physical was performed, and patient medications, allergies and sensitivities were reviewed. The patient's tolerance of previous anesthesia was reviewed. - The risks and benefits of the procedure and the sedation options and risks were discussed with the patient. All questions were answered and informed consent was obtained. After obtaining informed consent, the scope was passed under direct vision. Throughout the procedure, the patient's blood pressure, pulse, and oxygen saturations were monitored continuously. The Scope was introduced through the mouth, and advanced to the duodenum and used to inject contrast into the bile duct and ventral pancreatic duct. The ERCP was accomplished without difficulty. The patient tolerated the procedure well. Findings: The major papilla was normal. The bile duct was deeply cannulated with the short nose sphincterotome. Contrast was injected. I personally interpreted the bile duct images. [Radiology Details]. Choledocholithiasis was found in a nondilated duct. The lower third of the main bile duct contained one stone, which was 5 mm in diameter. A 5 mm biliary sphincterotomy was made with a short nose sphincterotome using ERBE electrocautery. There was no post-sphincterotomy bleeding. The biliary tree was swept with an 8 mm balloon starting at the lower third of the main duct. Impression: - The major papilla appeared normal. - Choledocholithiasis was found. [Removal]. - A biliary sphincterotomy was performed. - The biliary tree was swept. Recommendation: - [facility]. Marcelino Evans M.D. Marcelino Evans MD 10/29/2018 3:40:49 PM This report has been signed electronically. Note Initiated On: 10/29/2018 2:45 PM Number of Addenda: 0 I attest to the content of the Intraoperative Record and orders documented therein, exceptions below {[id number]}
[2018-10-29] MEDS ORDERED: ROCURONIUM BROMIDE 10 MG/ML 5 ML VIAL ONE (15:59)
[2018-10-29] MEDS ORDERED: FLUMAZENIL 0.1 MG/1 ML 10 ML VIAL IV PRN (15:59)
[2018-10-29] MEDS ORDERED: PROMETHAZINE HCL 12.5 MG in SODIUM CHLORIDE 0.9% 50 ML IV PRN (15:59)
[2018-10-29] MEDS ORDERED: ATROPINE SULFATE 0.1 MG/ML 10ML SYR IV PRN (15:59)
[2018-10-29] MEDS ORDERED: NALOXONE HCL 0.4 MG/1 ML VIAL/CARP IV PRN (15:59)
[2018-10-29] MEDS ORDERED: ePHEDrine sulfate 50 MG/ML AMP IV PRN (15:59)
[2018-10-29] MEDS ORDERED: ONDANSETRON INJ 2 MG/ML 2 ML VIAL ONE (15:59)
[2018-10-29] MEDS ORDERED: DEXAMETHASONE SOD INJ 4 MG/ML VIAL ONE (15:59)
[2018-10-29] MEDS ORDERED: fentaNYL citrate 100 MCG/2 ML VIAL IV PRN (15:59)
[2018-10-29] MEDS ORDERED: LABETALOL HCL IV 5 MG/ML 20ML IV PRN (15:59)
--- NOTE | 2018-10-29 16:05 | Fluoroscopy Report ---
[place] ERCP biliary ductal HISTORY: 52 years-old Female EXPLORE DUCTS choledocholithiasis COMPARISON: MRCP of same day TECHNIQUE: 2 spot. Images of the abdominal right upper quadrant were obtained utilizing 149.9 seconds fluoroscopy time FINDINGS: Endoscope is noted within the duodenum. Cannulation of the common bile duct with contrast opacificati on. Multiple filling ducts within the common bile duct suggestive of choledocholithiasis and/or air b ubbles. IMPRESSION: Fluoroscopic assistance as above. Please see procedural report for further details. The above report was generated using voice recognition software. It may contain grammatical, syntax o r spelling errors. Electronically signed by: Michael Pompa M.D. 10/29/2018 4:03 PM
--- NOTE | 2018-10-29 16:32 | Anesthesiology Progress Note ---
Date of Service October 29, 2018 Anesthesia Post Procedure Vital Signs Vital Signs: Temp Pulse Pulse Pulse Resp BP BP 10/29/18 16:25 36.2 C L 68 14 10/29/18 16:20 66 15 10/29/18 16:10 78 20 10/29/18 16:00 86 13 10/29/18 15:51 36.1 C L 85 19 10/29/18 14:24 36.7 C 73 18 10/29/18 12:46 36.7 C 68 16 10/29/18 08:12 36.9 C 74 18 10/29/18 05:45 36.5 C 77 14 10/29/18 05:09 85 16 124/75 10/29/18 04:30 82 16 124/75 10/29/18 02:52 85 18 128/66 10/29/18 01:11 36.8 C 89 18 144/80 H BP Pulse Ox 10/29/18 16:25 128/68 94 10/29/18 16:20 132/65 95 10/29/18 16:10 136/65 98 10/29/18 16:00 155/80 H 98 10/29/18 15:51 154/76 H 93 10/29/18 14:24 111/67 93 10/29/18 12:46 120/80 10/29/18 08:12 120/76 94 10/29/18 05:45 124/75 93 10/29/18 05:09 96 10/29/18 04:30 96 10/29/18 02:52 96 10/29/18 01:11 95 Pain Intensity Abdomen: Pain Intensity: 4 Notes Mental Status: alert / awake / arousable Patient Amnestic to Procedure: Yes Nausea / Vomiting: adequately controlled Pain: adequately controlled Airway Patency, RR, SpO2: stable & adequate BP & HR: stable & adequate Hydration State: stable & adequate Anesthetic Complications: no major complications apparent
[2018-10-29] MEDS: CIPROFLOXACIN 400 MG/200 ML BAG IV SCH (16:48)
--- NOTE | 2018-10-29 18:52 | Surgery Consultation ---
Date of Consultation October 29, 2018 Assessment & Plan (1) Choledocholithiasis: pt is 52 year old female who was admitted to hospital for acute cholecystitis with choledochholithiasis, S/P ERCP, IMP: Acute cholecystitsi, choledocholithiasis, UTI Plan, I recommend to do laparoscopic cholecystectomy possible open on 8am 10/31/2018 D/W benefits, risks and alternatives of the surgery, the risks - infection, bleeding, injury CBD, bowel, DVT,HI, , pt understood, she agrees with the plan, iv antibiotic to treat UTI, clear diet now, NPO after MN on 10/30/2018 History of Present Illness Attending Physician: Joao Preston MD Chief Complaint: The patient presents to the emergency department with worsening abdominal discomfort and bloating over the past week, with an episode of nausea and vomiting tonight, that led to her visit to the ED. Primary Care Provider: Magnus Donald The patient is a 52-year-old female with a past medical history including diabetes mellitus, hypertension, hypothyroidism, hyperlipidemia and depression, who presents to the emergency department with 1 week of worsening GI symptoms of abdominal distention, and bloating, with and episode of nausea and vomiting today prior to arrival. She has not had any recent travels or sick exposures. She has not had these type of symptoms in the past. She has not eaten any new or questionable food intake. She did have the beginning of loose stools over the past 3 days. I reviewed pt's H/P with pt, pt had ERCP done today, pt is doing fine, no significant abdominal pain now, no nausea, no vomiting, Allergies Allergy/AdvReac Type Severity Reaction Status Date / Time clavulanic acid Allergy Mild liver Verified 10/29/18 02:04 damage Penicillins Allergy Mild liver Verified 10/29/18 02:04 damage Home Medications Home Medications Medication Instructions Recorded Confirmed Type aspirin 81 mg PO DAILY 10/29/18 10/29/18 History cholecalciferol (vitamin D3) 2,000 unit PO DAILY 10/29/18 10/29/18 History [Vitamin D3] insulin aspart U-100 [Novolog 0 unit SUBCUT DIRECTED 10/29/18 10/29/18 History Flexpen U-100 Insulin] levothyroxine 150 mcg PO 6XWK 10/29/18 10/29/18 History levothyroxine 200 mcg PO DIRECTED 10/29/18 10/29/18 History lisinopril 40 mg PO DAILY 10/29/18 10/29/18 History metformin 1,000 mg PO BID 10/29/18 10/29/18 History multivitamin 1 tab PO DAILY 10/29/18 10/29/18 History omega 3-nat-vlr-fish oil [Eyota-3] 1 cap PO DAILY 10/29/18 10/29/18 History pravastatin [Pravachol] 40 mg PO DAILY 10/29/18 10/29/18 History sertraline 100 mg PO DAILY 10/29/18 10/29/18 History Patient History Medical History Hyperlipemia Hypertension Hypothyroid Type 2 diabetes mellitus insulin dependent Social History Communication Ability: Effective Beliefs That Will Affect Care: None marital status: Current Living Situation: Spouse Current Living Situation Comment: x2 sons & cats Other Information That Helps Us Care for You: No Feels Safe at Home: Yes Safety Concerns: Feels Safe At This Time Smoking Status: Never smoker Hx Alcohol Use: Yes Hx Substance Use: No Review of Systems Constitutional: as per Subjective / HPI Ear, Nose, Mouth, Throat: as per Subjective / HPI Respiratory: as per Subjective / HPI Cardiovascular: as per Subjective / HPI Additional Comments: HTN Gastrointestinal: + abdominal pain S/P ERCP Genitourinary (Female): as per Subjective / HPI Neurologic: as per Subjective / HPI Psychiatric: as per Subjective / HPI DM, hypothyroidism Hematologic / Lymphatic: as per Subjective / HPI Physical Exam Vital Signs (Past 24 Hours): Last Vital Signs Temp 36.7 C 10/29/18 18:44 Pulse 74 10/29/18 18:44 Resp 16 10/29/18 18:44 BP 130/76 10/29/18 18:44 Pulse Ox 94 10/29/18 18:44 Constitutional: WD/WN, vitals as above well developed and well nourished Neck: trachea midline, no thyromegaly Respiratory: normal respiratory effort, lungs clear to auscultation normal respiratory effort and + respiratory distress Cardiovascular: RRR, no murmur, no edema Rate/Rhythm: regular rate and regular rhythm Heart Sounds: normal S1 and normal S2 Gastrointestinal (Abdomen): Percussion/Palpation: + abdomen tender and abdomen soft slightly tenderness at RUQ, no rebound pain, BS + Neurologic: awake Psychiatric: Orientation: alert and oriented x 3 Results & Data Laboratory Results Abnormal lab results 10/29/18 10/29/18 10/29/18 Range/Units 01:45 01:45 02:50 Immature Gran # (Auto) 0.03 H (0.00-0.02) K/uL Neut # (Auto) 7.72 H (1.4-6.5) K/uL Lymph # (Auto) 0.98 L (1.2-3.4) K/uL [place] # (Auto) 1.54 H (0.11-0.59) K/uL Glucose 138 H (70-99) mg/dl POC Glucose (70-99) Total Bilirubin 1.9 H (0.2-1) mg/dl AST 1028 H (15-37) U/L ALT 613 H (12-78) U/L Alkaline Phosphatase 200 H (45-117) U/L Urine Appearance Cloudy H (Clear) Urine Nitrite Positive H (Negative) Urine Bilirubin 1+ H (Negative) Ur Leukocyte Esterase 2+ H (Negative) Urine WBC (Auto) >30 H (0-5) /hpf U Hyaline Cast (Auto) 10-30 H (0-5) /lpf U Epithel Cells (Auto) 10-20 H (0-5) /lpf Urine Bacteria (Auto) 2+ H (Negative) 10/29/18 10/29/18 Range/Units 06:18 17:02 Immature Gran # (Auto) (0.00-0.02) K/uL Neut # (Auto) (1.4-6.5) K/uL Lymph # (Auto) (1.2-3.4) K/uL [place] # (Auto) (0.11-0.59) K/uL Glucose (70-99) mg/dl POC Glucose 173 H 116 H (70-99) Total Bilirubin (0.2-1) mg/dl AST (15-37) U/L ALT (12-78) U/L Alkaline Phosphatase (45-117) U/L Urine Appearance (Clear) Urine Nitrite (Negative) Urine Bilirubin (Negative) Ur Leukocyte Esterase (Negative) Urine WBC (Auto) (0-5) /hpf U Hyaline Cast (Auto) (0-5) /lpf U Epithel Cells (Auto) (0-5) /lpf Urine Bacteria (Auto) (Negative) Diagnostic Findings ABDOMEN AND PELVIS CT WITH IV CONTRAST CT DOSE: 731.95 mGy.cm HISTORY: Acute generalized abdominal pain with nausea abdominal pain, bloating, nausea TECHNIQUE: Multiaxial CT images of the abdomen and pelvis were performed following the use of intravenous contrast. A dose lowering technique was utilized adhering to the principles of ALARA. COMPARISON STUDY: MRCP of same day, CTA chest 05/01/2013. FINDINGS: Mild subsegmental bibasilar atelectasis. Calcific granuloma of the basal right lower lobe. There is no pneumatosis or pneumoperitoneum. Imaged inferior cardiac chambers appear unremarkable. Lobular hypodensity about the left hepatic lobe appears benign conglomerate measuring up to approximately 1.9 cm. Additional ill-defined lobular areas of decreased attenuation noted within the caudate lobe measuring up to 2.5 cm. These areas may reflect focal fatty infiltration. Liver otherwise appears unremarkable. No intrahepatic biliary ductal dilation. The spleen, and adrenal glands appear unremarkable. Lobular cystic density foci noted about the superior pancreatic tail splenic hilum measuring up to 1.4 cm which appear unchanged from 2013 suggestive of benign etiology such as a lymphatic malformation. Pancreas otherwise appears unremarkable. No pancreatic ductal dilation. Cholelithiasis without CT evidence of acute cholecystitis. Mild dilation of the common bile duct, 8 mm with choledocholithiasis. At least 2 stones are noted in the common bile duct measuring up to 4 mm. Subcentimeter right renal cysts. Kidneys are otherwise unremarkable. No renal or ureteral calculi or obstructive uropathy. Urinary bladder, uterus and adnexa appear unremarkable. Aorta and IVC are unremarkable. There is no adenopathy. No bowel obstruction or focal bowel wall thickening. Terminal ileum and appendix appear normal. No ascites or mesenteric inflammation. Diastases recti. Soft tissues appear unremarkable. Degenerative changes of the spine. IMPRESSION: 1. Choledocholithiasis with mild dilation of the common bile duct measuring 8 mm. Further evaluation with ERCP recommended. 2. Cholelithiasis without CT evidence of acute cholecystitis. 3. No bowel obstruction or focal bowel wall thickening. 4. Additional findings as above. MR MRCP CLINICAL HISTORY: 52 years-old Female presenting with CHOLEDOCHOLITHIASIS, bloating, diarrhea, nausea, vomiting, symptoms started Thursday, right-sided ab dominal pain radiating into the back. TECHNIQUE: Multisequence, multiplanar MR imaging of the abdomen was performed without the use of intravenous contrast. Dedicated MRCP protocol was utilized. 3-D volumetric and/or maximum intensity projection (MIP) images were subsequently reconstructed for review. IV contrast: None. COMPARISON: CT performed earlier the same day. FINDINGS: Localizer images: Unremarkable. Lung bases: Lung base clear. Normal heart size. No pericardial or pleural effusion. Liver: Normal morphology. No liver lesion. Patent hepatic vasculature. Biliary: Choledocholithiasis in the distal common bile duct level the pancreatic head. Mild intrahepatic or extrahepatic biliary ductal dilatation. Common duct measures 7 mm in diameter in the midportion. Gallbladder contains gallstones. No gallbladder wall thickening, abnormal distention, or pericholecystic fluid or inflammatory change. Pancreas: Normal. Spleen: Normal. Adrenal glands: Normal. Kidneys and ureters: Normal. No hydronephrosis. Bowel: Normal. No bowel obstruction. Peritoneal cavity: No free fluid. Lymph nodes: No enlarged lymph nodes in the abdomen. Vasculature: Aorta and IVC patent and normal in caliber. Abdominal wall: Normal. Musculoskeletal: Normal. IMPRESSION: 1. Choledocholithiasis and cholelithiasis with mild intrahepatic and extra hepatic biliary ductal dilatation. No evidence of cholecystitis. ERCP to be considered. [place], [place] GI REPORT Signed [facility] Date: 10/29/18 MR#: [id number] Phy: Joao Preston M.D. Acct ID:[id number] Phy: Magnus Donald M.D. Date: 1965Fam Phy: Age: 52Location: 3N Sex: F [facility] cc: ~ DICTATED BY: Marcelino Evans M.D. Patient Name: Cydney Patel Procedure Date: 10/29/2018 2:45 PM Date of : 1965 Admit Type: Inpatient Age: 52 Gender: Female Attending MD: Marcelino Evans MD Procedure: ERCP Providers: Marcelino Evans MD Referring MD: Referred Self Indications: Common bile duct stone(s) Medicines: General Anesthesia Complications: No immediate complications. Estimated Blood Loss: Estimated blood loss: none. Procedure: Pre-Anesthesia Assessment: - Prior to the procedure, a History and Physical was performed, and patient medications, allergies and sensitivities were reviewed. The patient's tolerance of previous anesthesia was reviewed. - The risks and benefits of the procedure and the sedation options and risks were discussed with the patient. All questions were answered and informed consent was obtained. After obtaining informed consent, the scope was passed under direct vision. Throughout the procedure, the patient's blood pressure, pulse, and oxygen saturations were monitored continuously. The Scope was introduced through the mouth, and advanced to the duodenum and used to inject contrast into the bile duct and ventral pancreatic duct. The ERCP was accomplished without difficulty. The patient tolerated the procedure well. Findings: The major papilla was normal. The bile duct was deeply cannulated with the short nose sphincterotome. Contrast was injected. I personally interpreted the bile duct images. [Radiology Details]. Choledocholithiasis was found in a nondilated duct. The lower third of the main bile duct contained one stone, which was 5 mm in diameter. A 5 mm biliary sphincterotomy was made with a short nose sphincterotome using ERBE electrocautery. There was no post-sphincterotomy bleeding. The biliary tree was swept with an 8 mm balloon starting at the lower third of the main duct. Impression: - The major papilla appeared normal. - Choledocholithiasis was found. [Removal]. - A biliary sphincterotomy was performed. - The biliary tree was swept.
--- NOTE | 2018-10-29 18:59 | Progress Note ---
DATE: 10/29/2018 The patient underwent an ERCP in the operating room this afternoon. The patient had cannulation of both bile and pancreatic ducts. Pancreatic duct was normal. Bile duct showed a 5-mm stone in the distal duct. The stone was removed with an 8-mm balloon following a sphincterotomy. The patient tolerated the procedure well without any complications. I have recommended that the patient undergo surgical consultation concerning a cholecystectomy either during this hospitalization or as an outpatient.
[2018-10-30] MEDS: metroNIDAZOLE 500 MG/100 ML BAG IV SCH ×3 (03:09→20:06)
[2018-10-30] MEDS: NSS + 20MEQ KCL 20 MEQ/1,000 ML BAG IV SCH ×2 (03:09→12:38)
[2018-10-30] MEDS: CIPROFLOXACIN 400 MG/200 ML BAG IV SCH ×2 (04:08→16:25)
[2018-10-30] MEDS: LEVOTHYROXINE SODIUM 150 MCG TABLET PO SCH (06:11)
[2018-10-30 06:50] LABS: Hemoglobin 12.5 g/dL (12.0-16.0); Mean Corpuscular Hgb Conc 33.8 g/dL (32-36); Mean Corpuscular Volume 84.5 fL (80-100); Mean Platelet Volume 9.7 fL (7.4-10.4); Platelet Count 259 K/uL (130-400); RDW Coefficient of Variation 13.6 % (11.5-14.5); RDW Standard Deviation 41.5 fL (36.4-46.3); Red Blood Count 4.38 M/uL (4.2-5.4); White Blood Count 8.57 K/uL (4.8-10.8)
[2018-10-30 07:09] LABS: Est GFR (African American) 115.5; Est GFR (Non-African American) 99.7; Potassium 4.2 mmol/L (3.5-5.1)
[2018-10-30 07:10] LABS: Albumin Globulin Ratio 0.7 (0.9-2); Albumin Level 2.6 gm/dl (3.4-5.0); BUN Creatinine Ratio 17.4 (10-20); Bilirubin,Total 1.1 mg/dl (0.2-1); Calcium 7.8 mg/dl (8.5-10.1); Creatinine Clr Calc Pharmacy 108.2 ml/min; Globulin 3.5 gm/dl (2.5-4.0); Total Protein 6.1 gm/dl (6.4-8.2)
[2018-10-30 07:37] LABS: Estimated Average Glucose 223 mg/dl; Hemoglobin A1C 9.4 % (4.5-5.6)
[2018-10-30] MEDS: SERTRALINE HCL 100 MG TABLET PO SCH (08:42)
[2018-10-30] MEDS: INSULIN ASPART 100 UNITS/ML 3 ML PEN SC SCH ×4 (08:43→21:02)
--- NOTE | 2018-10-30 08:51 | Hospitalist Progress Note ---
Date of Service October 30, 2018 Assessment & Plan (1) Choledocholithiasis with obstruction: - ERCP 10/29 - stone removal and biliary sphincterectomy - NPO tonight for cholecystectomy - will dc fluid following surgery - Cipro 400 mg IV BID and Flagyl 500 mg IV TID - general surgery, GI consulted - patient has no cardiac history, she had a stress test in the recent past which was normal except she was afraid to get her heart rate up and so did not achieve much of her expected heart rate. 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 Some sob with stairs but no chest pain with activity. She does not routinely exercise. RCRI estimates a 6% risk of major cardiac event. Will order CXR and EKG (2) Abnormal liver function tests: - Transaminitis related to obstruction - improving - abdominal CT additionally showed possible fatty infiltrate - follow with outpatient provider (3) Insulin-requiring or dependent type II diabetes mellitus: - Hold Metformin 1000 mg BID and home Tresiba while inpatient - utilize SSI while admitted and add insulin glargine 10 mg daily - titrate up this afternoon if elevated bsgs persist - Follows with Animal Nurse in [place] - A1c 9.4 indicating poor control although patient does state that this is an improvement over her last A1c. She reports she has never had her A1c better than 8. Her brother recently due to complications from diabetic nephropathy. (4) Hypothyroidism (acquired): - continue Levothyroxine 150 mcg and 200 mcg on Sundays (5) Hypertension: - continue Lisinopril 40 mg daily (6) Hyperlipidemia: - continue Pravastatin 40 mg daily (7) Depression: - Sertraline 100 mg daily (8) DVT prophylaxis: - Ambulation, SCDs Subjective Ms. Patel feels a bit bloated and generally puffy but has no pain, nausea or vomiting. Review of Systems All systems reviewed & are unremarkable except as noted in HPI & below Physical Exam Vital Signs (Past 24 Hours): Last Vital Signs Temp 36.9 C 10/30/18 07:48 Pulse 72 10/30/18 07:48 Resp 17 10/30/18 07:48 BP 110/64 10/30/18 07:48 Pulse Ox 95 10/30/18 07:48 Physical Exam: General: no distress Eyes: normal inspection, PERLL Respiratory: chest non tender, clear to auscultation, normal breath sounds, no respiratory distress, no accessory muscle use Cardiac: regular rate and rhythm, no rub or gallop, no murmur, no edema, no jvd GI/: active bowel sounds, no abd pain or tenderness, soft, non distended Extremities: normal range of motion, normal strength, non tender Neuro/Psych: alert and oriented x 3, normal mood and affect Skin: normal color, dry Results & Data Laboratory Results Abnormal lab results 10/29/18 10/29/18 10/30/18 Range/Units 17:02 20:45 06:27 Chloride (98-107) mmol/L Glucose (70-99) mg/dl POC Glucose 116 H 243 H (70-99) Hemoglobin A1c 9.4 H (4.5-5.6) % Calcium (8.5-10.1) mg/dl Total Bilirubin (0.2-1) mg/dl AST (15-37) U/L ALT (12-78) U/L Alkaline Phosphatase (45-117) U/L Total Protein (6.4-8.2) gm/dl Albumin (3.4-5.0) gm/dl Albumin/Globulin Ratio (0.9-2) 10/30/18 10/30/18 10/30/18 Range/Units 06:27 07:55 12:04 Chloride 110 H (98-107) mmol/L Glucose 279 H (70-99) mg/dl POC Glucose 227 H 210 H (70-99) Hemoglobin A1c (4.5-5.6) % Calcium 7.8 L (8.5-10.1) mg/dl Total Bilirubin 1.1 H (0.2-1) mg/dl AST 328 H (15-37) U/L ALT 580 H (12-78) U/L Alkaline Phosphatase 251 H (45-117) U/L Total Protein 6.1 L (6.4-8.2) gm/dl Albumin 2.6 L (3.4-5.0) gm/dl Albumin/Globulin Ratio 0.7 L (0.9-2)
--- NOTE | 2018-10-30 10:09 | Gastroenterology Progress Note ---
Date of Service October 30, 2018 Assessment & Plan (1) Choledocholithiasis: Subjective Gastrointestinal: + bloating; no abdominal pain and no cramping No bowel movements yet. Physical Exam Vital Signs (Past 24 Hours): Last Vital Signs Temp 36.9 C 10/30/18 07:48 Pulse 72 10/30/18 07:48 Resp 17 10/30/18 07:48 BP 110/64 10/30/18 07:48 Pulse Ox 95 10/30/18 07:48 Gastrointestinal (Abdomen): Percussion/Palpation: abdomen soft; abdomen nontender Skin: no rashes, warm and dry Results & Data Laboratory Results Reviewed
--- NOTE | 2018-10-30 10:26 | Surgery Progress Note ---
Date of Service October 30, 2018 pt is doing better, less abdominal pain, no nausea, no vomiting Assessment & Plan (1) Choledocholithiasis: Plan, I recommend to do laparoscopic cholecystectomy possible open on 8am 10/31/2018 D/W benefits, risks and alternatives of the surgery, the risks - infection, bleeding, injury CBD, bowel, DVT,AR, , pt understood, she agrees with the plan, she signed consent. iv antibiotic to treat UTI, clear diet now, good control her DM NPO after MN on 10/30/2018 Subjective Constitutional: as per Subjective / HPI Ear, Nose, Mouth, Throat: as per Subjective / HPI Respiratory: as per Subjective / HPI Cardiovascular: as per Subjective / HPI Gastrointestinal: + abdominal pain Genitourinary (Female): + as per Subjective / HPI Neurologic: as per Subjective / HPI Psychiatric: as per Subjective / HPI Hematologic / Lymphatic: as per Subjective / HPI Physical Exam Vital Signs (Past 24 Hours): Last Vital Signs Temp 36.9 C 10/30/18 07:48 Pulse 72 10/30/18 07:48 Resp 17 10/30/18 07:48 BP 110/64 10/30/18 07:48 Pulse Ox 95 10/30/18 07:48 Constitutional: WD/WN, vitals as above Neck: trachea midline, no thyromegaly Respiratory: normal respiratory effort, lungs clear to auscultation Cardiovascular: RRR, no murmur, no edema Heart Sounds: normal S1 and normal S2 Gastrointestinal (Abdomen): Percussion/Palpation: + abdomen tender and abdomen soft slightly tenderness at RUQ, no rebound pain, Neurologic: awake Psychiatric: Orientation: alert and oriented x 3 Results & Data Laboratory Results Abnormal lab results 10/29/18 10/29/18 10/30/18 Range/Units 17:02 20:45 06:27 Chloride (98-107) mmol/L Glucose (70-99) mg/dl POC Glucose 116 H 243 H (70-99) Hemoglobin A1c 9.4 H (4.5-5.6) % Calcium (8.5-10.1) mg/dl Total Bilirubin (0.2-1) mg/dl AST (15-37) U/L ALT (12-78) U/L Alkaline Phosphatase (45-117) U/L Total Protein (6.4-8.2) gm/dl Albumin (3.4-5.0) gm/dl Albumin/Globulin Ratio (0.9-2) 10/30/18 10/30/18 Range/Units 06:27 07:55 Chloride 110 H (98-107) mmol/L Glucose 279 H (70-99) mg/dl POC Glucose 227 H (70-99) Hemoglobin A1c (4.5-5.6) % Calcium 7.8 L (8.5-10.1) mg/dl Total Bilirubin 1.1 H (0.2-1) mg/dl AST 328 H (15-37) U/L ALT 580 H (12-78) U/L Alkaline Phosphatase 251 H (45-117) U/L Total Protein 6.1 L (6.4-8.2) gm/dl Albumin 2.6 L (3.4-5.0) gm/dl Albumin/Globulin Ratio 0.7 L (0.9-2)
[2018-10-30] MEDS ORDERED: INSULIN GLARGINE SOLOSTAR 100 UNITS/ML 3 ML PEN SC ONE ×2 (10:32→19:15)
[2018-10-30] MEDS: PANTOprazole 40 MG in SYRINGE 0 ML IV SCH (10:32)
[2018-10-30] MEDS ORDERED: LANTUS PER UNIT CHARGE SQ STA (10:33)
--- NOTE | 2018-10-30 15:53 | XRay Report ---
XR chest 2V routine HISTORY: pre op COMPARISON: Chest CTA 05/01/2013. FINDINGS: No pneumothorax. The heart is mildly enlarged. Perihilar interstitial and vascular consiste nt with mild congestive change. Suspect trace bilateral pleural effusions. No focal lung consolidatio ns to suggest pneumonia. IMPRESSION: Mild pulmonary vascular congestion and trace bilateral pleural effusions. Electronically signed by: Carter Hardy M.D. 10/30/2018 3:52 PM
[2018-10-30] MEDS ORDERED: FUROSEMIDE 40 MG in SYRINGE 0 ML IV ONE (16:21)
[2018-10-30] MEDS ORDERED: PHARMACY GLYCEMIC MGMT CONSULT PRN (18:57)
[2018-10-31] MEDS: INSULIN ASPART 100 UNITS/ML 3 ML PEN SC SCH ×6 (00:51→23:41)
[2018-10-31] MEDS: metroNIDAZOLE 500 MG/100 ML BAG IV SCH ×3 (03:35→20:54)
[2018-10-31] MEDS: CIPROFLOXACIN 400 MG/200 ML BAG IV SCH ×2 (04:58→16:42)
[2018-10-31 06:23] LABS: Hematocrit (blood only) 38.1 % (37-47); Hemoglobin 12.9 g/dL (12.0-16.0); Mean Corpuscular Hgb Conc 33.9 g/dL (32-36); Mean Corpuscular Volume 85.4 fL (80-100); Mean Platelet Volume 9.7 fL (7.4-10.4); Platelet Count 269 K/uL (130-400); RDW Coefficient of Variation 13.6 % (11.5-14.5); RDW Standard Deviation 41.9 fL (36.4-46.3); Red Blood Count 4.46 M/uL (4.2-5.4); White Blood Count 8.25 K/uL (4.8-10.8)
[2018-10-31] MEDS ORDERED: LEVOTHYROXINE SODIUM 200 MCG TABLET PO SCH (06:30)
[2018-10-31 06:50] LABS: Albumin Level 2.8 gm/dl (3.4-5.0); BUN Creatinine Ratio 15.1 (10-20); Calcium 8.1 mg/dl (8.5-10.1); Creatinine Clr Calc Pharmacy 118.8 ml/min; Est GFR (African American) 119.1; Est GFR (Non-African American) 102.8; Potassium 3.4 mmol/L (3.5-5.1)
[2018-10-31 06:57] LABS: Albumin Globulin Ratio 0.8 (0.9-2); Bilirubin,Total 0.6 mg/dl (0.2-1); Globulin 3.4 gm/dl (2.5-4.0); Total Protein 6.2 gm/dl (6.4-8.2)
--- NOTE | 2018-10-31 07:07 | XRay Report ---
XR chest 1V portable CLINICAL HISTORY: fluid overload dyspnea COMPARISON STUDY: 10/30/2018 FINDINGS: Slight increase in pulmonary vascular congestion. Slight blunting right lateral costophreni c angle. Mild cardia megaly. Diaphragms smooth. IMPRESSION: Mildly progressive pulmonary vascular congestion. The above report was generated using voice recognition software. It may contain grammatical, syntax or spelling errors. Electronically signed by: Ramirez Red M.D. 10/31/2018 7:05 AM
--- NOTE | 2018-10-31 07:29 | Anesthesiology Consultation ---
Date of Service October 31, 2018 Assessment & Plan ASA ASA3 Proposed Anesthesia Anesthesia Type: General NPO Date Last Intake of Fluids: 10/28/18 Time Last Intake of Fluids: 19:30 Date Last Intake of Solids: 10/28/18 Time Last Intake of Solids: 19:30 History Surgery Operation Date: 10/29/18 08:45 Proposed Procedures p Endoscopic Retrograde Cholangiopancreatogram - Marcelino Evans Operation Date: 10/31/18 10:00 Proposed Procedures p Laparoscopic Cholecystectomy - Tory Barrow MD Height/Weight Height: 5 ft 7 in Weight: 86.1 kg Allergies Allergy/AdvReac Type Severity Reaction Status Date / Time clavulanic acid Allergy Mild liver Verified 10/29/18 02:04 damage Penicillins Allergy Mild liver Verified 10/29/18 02:04 damage Medications Home Medications Medication Instructions Recorded Confirmed Last Taken aspirin 81 mg PO DAILY 10/29/18 10/29/18 Unknown cholecalciferol (vitamin D3) 2,000 unit PO DAILY 10/29/18 10/29/18 Unknown [Vitamin D3] insulin aspart U-100 [Novolog 0 unit SUBCUT DIRECTED 10/29/18 10/29/18 Unknown Flexpen U-100 Insulin] levothyroxine 150 mcg PO [id number] 10/29/18 10/29/18 Unknown levothyroxine 200 mcg PO DIRECTED 10/29/18 10/29/18 Unknown lisinopril 40 mg PO DAILY 10/29/18 10/29/18 Unknown metformin 1,000 mg PO BID 10/29/18 10/29/18 Unknown multivitamin 1 tab PO DAILY 10/29/18 10/29/18 Unknown omega 3-vaw-ffy-fish oil [[place]-3] 1 cap PO DAILY 10/29/18 10/29/18 Unknown pravastatin [Pravachol] 40 mg PO DAILY 10/29/18 10/29/18 Unknown sertraline 100 mg PO DAILY 10/29/18 10/29/18 Unknown insulin degludec 70 units DAILY 10/30/18 10/30/18 Unknown Active Medications Generic Name Dose Route Start Last Admin Trade Name Freq PRN Reason Stop Dose Admin Ciprofloxacin 400 mg in 200 mls @ 100 mls/hr 10/29/18 16:00 10/31/18 06:56 Cipro IV 11/08/18 15:59 Infused Q12H DENISE Infusion Metronidazole 500 mg in 100 mls @ 100 mls/hr 10/29/18 12:00 10/31/18 04:58 Flagyl IV 11/08/18 11:59 Infused Q8H DENISE Infusion Pantoprazole Sodium 40 mg/ 10 mls @ 5 mls/min 10/29/18 11:00 10/30/18 10:32 Syringe IV 11/28/18 10:59 5 mls/min DAILY@1100 DENISE Administration Insulin Aspart 0 units 10/31/18 01:00 10/31/18 03:46 Novolog Flexpen SC 11/30/18 00:59 Not Given Q4 DENISE Levothyroxine Sodium 200 mcg 10/31/18 06:30 10/31/18 05:36 Synthroid PO 11/30/18 06:29 Not Given Miller@0630 DENISE Levothyroxine Sodium 150 mcg 10/30/18 06:30 10/30/18 06:11 Synthroid PO 11/29/18 06:29 150 mcg [id number]@0630 DENISE Administration Sertraline HCl 100 mg 10/30/18 09:00 10/30/18 08:42 Zoloft PO 11/29/18 08:59 100 mg DAILY DENISE Administration Past Medical History Medical History Choledocholithiasis (Acute) Asymptomatic now. Ok to proceed with choledocolithiasis. Note HB A1C 9.4. This may play into surgical plans; per surgery team. No additional reccs for now. Hyperlipemia Hypertension Hypothyroid Obesity Type 2 diabetes mellitus insulin dependent Past Surgical History Surgical History History of ERCP Past Anesthesia History No Hx of Anesthesia Complications and No Family Hx of Anesthesia Complications History of PONV Yes Motion Sickness Screening History of Motion Sickness: No Social History Smoking Status: Never smoker Hx Alcohol Use: Yes alcohol intake frequency: holidays/special occasions only Hx Substance Use: No substance use type: does not use Exercise / Class Metabolic Activity III < 4 Walking/Shop/Light housework Physical Exam Vital Signs Last Vital Signs Temp 36.6 C 10/31/18 07:07 Pulse 62 10/31/18 07:07 Resp 18 10/31/18 07:07 BP 117/68 10/31/18 07:07 Pulse Ox 95 10/31/18 07:07 ENMT Mouth: no dentition abnormality Thyromental Distance: < 3.5 Finger Breadths Mallampati Class: II Neck normal visual inspection and trachea midline; neck extension not limited Respiratory normal respiratory effort Auscultation: + diminished lung sounds Cardiovascular Rate/Rhythm: regular rate and regular rhythm Heart Sounds: no murmur Vessels: no carotid bruit Neurologic moves all extremities Motor/Sensory: no sensory deficit Psychiatric Orientation: alert and oriented x 3 Testing Electrocardiogram Date: 10/30/18 Findings: + NSR @ (at 65;low voltage) Chest X-Ray Date: 10/31/18 Findings: + pulmonary vascular congestion Laboratory Results 10/31/18 05:56 10/31/18 05:56 PT 10.1 Seconds (9.0-12.0) 10/29/18 01:42 INR 1.0 (0.9-1.1) 10/29/18 01:42 APTT 25.1 Seconds (21.0-31.0) 10/29/18 01:42 Hemoglobin A1c 9.4 % (4.5-5.6) H 10/30/18 06:27 Urine Color Dark Yellow 10/29/18 02:50 Urine Appearance Cloudy (Clear) H 10/29/18 02:50 Urine pH 7.5 (4.5-7.5) 10/29/18 02:50 Ur Specific [place] 1.024 (1.000-1.030) 10/29/18 02:50 Urine Protein Negative (Negative) 10/29/18 02:50 Urine Glucose (UA) Negative (Negative) 10/29/18 02:50 Urine Ketones Negative (Negative) 10/29/18 02:50 Urine Nitrite Positive (Negative) H 10/29/18 02:50 Ur Leukocyte Esterase 2+ (Negative) H 10/29/18 02:50 Urine WBC (Auto) >30 /hpf (0-5) H 10/29/18 02:50 Urine RBC (Auto) 0-4 /hpf (0-4) 10/29/18 02:50 U Hyaline Cast (Auto) 10-30 /lpf (0-5) H 10/29/18 02:50 U Epithel Cells (Auto) 10-20 /lpf (0-5) H 10/29/18 02:50 Urine Bacteria (Auto) 2+ (Negative) H 10/29/18 02:50 Urine Test Negative (Negative) 10/29/18 02:50 10/29/18 02:50 Urine Culture - Preliminary Urine,Clean Catch Escherichia coli 10/31/18 10/31/18 10/30/18 03:40 00:48 20:40 POC Glucose 122 H 162 H 249 H 10/29/18 02:50 Urine Test Negative
[2018-10-31] MEDS ORDERED: FUROSEMIDE 40 MG in SYRINGE 0 ML IV ONE (08:15)
[2018-10-31] MEDS: POTASSIUM CHLORIDE / WTR 10 MEQ/100 ML PLCT IV SCH ×2 (09:15→13:36)
[2018-10-31] MEDS: SERTRALINE HCL 100 MG TABLET PO SCH (09:46)
--- NOTE | 2018-10-31 09:47 | Pharmacy Report ---
Glycemic Control Consultation - Date of Service October 31, 2018 - Scope Scope: Glycemic Pharmacist consulted by Brian Courtney on 10/30 for glycemic control and to write orders per [facility] inpatient glycemic control protocol - Objective Weight: 86.1 kg Accuchecks BSG (last 24hrs): 10/30/18 10/30/18 10/30/18 12:04 16:55 20:40 Glucose POC Glucose 210 H 240 H 249 H 10/31/18 10/31/18 10/31/18 00:48 03:40 05:56 Glucose 128 H POC Glucose 162 H 122 H 10/31/18 08:08 Glucose POC Glucose 126 H Laboratory Data (last 24hrs): 10/31/18 05:56 Potassium 3.4 L D Carbon Dioxide 28 Anion Gap 6.0 Creatinine 0.61 Est Cr Clr Drug Dosing 118.8 HbA1c: Hemoglobin A1c 9.4 % (4.5-5.6) H 10/30/18 06:27 - Recent Pertinent Medications Outpatient Anti-diabetic Regimen: confirmed this regimen with patient today. She follows w/ Endo in [place] * Metformin 1 gm BID * Tresiba 70 units daily - just increased last week from 64 units * Novolog w/ CF 25, CR 1 unit per 5 gm CHO - CR just tightened last week * A1c = 9.4 % 10/30/18 (an improvement from previous A1c's) The patient is currently receiving: * Basal insulin: Lantus total of 45 units received yesterday * Correctional Insulin: Novolog Correction per scale ACHS Goal Range: Low 110 mg/dL - High 140 mg/dL Correction Factor: 20 mg/dL/unit * Prandial insulin: None * Oral Agents: None at this time Risk Factors for Insulin Resistance: * Steroids: Decadron given in the OR on 10/29 * Infection: on Cipro/Flagyl * Pressors: * IVF: * Recent Surgery: POD #2 s/p ERCP; scheduled for possible lap laura today * Diet: NPO - Assessment & Plan Assessment & Plan: ASSESSMENT: * 52 y/o female admitted on 10/29 for choledocholithiasis with obstruction. She has type 2 diabetes, managed as noted above. Pharmacy received the glycemic consult yesterday when her BSGs were in the 200s. This was due to Decadron given in the OR on 10/29 as well as not receiving any basal at all on 10/29. After basal insulin was resumed (at a lower dose), BSGs are significantly improved today. She has been NPO all day with possible plans to go to the OR for a lap laura. * I spoke with the patient today to obtain her outpatient regimen and get an idea of her recent BSG control. Sounds like she follows closely with her warehouse delivery driver in [place] and insulin regimen has been adjusted pretty frequently. She was switched to the [facility] last year to be more flexible with her lifestyle. She reports typically taking ~8 units of Novolog with meals, which indicates that her basal makes up a large part of her total daily dose and most likely covers some of her prandial needs. * Will plan to continue with a reduced basal dose while she is NPO. She should not need as much as she received yesterday since the steroids would be worn off and she is no longer basal deficient. PLAN FOR INPATIENT GLYCEMIC CONTROL: * Holding outpatient oral diabetes medications * Basal insulin - continue reduced dose while NPO * Lantus qHS per the following scale: * 25 units for BSG < 110 * 30 units for BSG 110-140 * 35 units for BSG > 140 * Bolus insulin - change to outpatient parameters, decrease frequency to normal q6h checks now that BSG improved * NovoLog per scale ACHS or Q6hrs while NPO * Goal Range: Low 110 mg/dL - High 140 mg/dL * Correction Factor: 25 mg/dL/unit * Nutritional / Prandial insulin per carb ratio of 1 unit per 5 grams CHO consumed Discharge Recommendations: * Continue outpatient regimen on discharge * Continue close f/u with warehouse delivery driver Thank you.
--- NOTE | 2018-10-31 10:01 | Hospitalist Progress Note ---
Date of Service October 31, 2018 Assessment & Plan (1) Choledocholithiasis with obstruction: - ERCP 10/29 - stone removal and biliary sphincterectomy - NPO for cholecystectomy 10/31 - Cipro 400 mg IV BID and Flagyl 500 mg IV TID - general surgery, GI consulted - continue IV protonix push (2) Abnormal liver function tests: - Transaminitis related to obstruction - improving - abdominal CT additionally showed possible fatty infiltrate - follow with outpatient provider (3) Pulmonary vascular congestion: - Chest Xray showed pulmonary vascular congestion and small pleural effusions last night and again on repeat this morning. EKG showed Q waves in anterior leads. I do not see a previous EKG to compare it to but patient has not had any chest pain or anginal symptoms. She has an echo pending. 40 mg IV lasix given last evening and repeated this morning. Discussed with anesthesia - potassium decreased with lasix administration - replaced (4) Insulin-requiring or dependent type II diabetes mellitus: - Hold Metformin 1000 mg BID and home Tresiba while inpatient - glycemic pharmacist consult - Follows with [employer] in [place] - A1c 9.4 indicating poor control although patient does state that this is an improvement over her last A1c. She reports she has never had her A1c better than 8. She does have a family history of DMII. - discussed importance of lifestyle choices and importance of following with her outpatient provider. (5) Hypothyroidism (acquired): - continue Levothyroxine 150 mcg and 200 mcg on Sundays (6) Hypertension: - continue Lisinopril 40 mg daily - patient reports taking daily Claritin D at home - she should probably avoid routine use of decongestants (7) Hyperlipidemia: - continue Pravastatin 40 mg daily (8) Depression: - Sertraline 100 mg daily (9) DVT prophylaxis: - Ambulation, SCDs Subjective Ms. Patel is a bit tearful this morning. She is concerned about her health and has recently had some deaths in her family that increase her worry for herself. We did spend quite a while talking about preventive care and healthy lifestyle. Review of Systems All systems reviewed & are unremarkable except as noted in HPI & below Physical Exam Vital Signs (Past 24 Hours): Last Vital Signs Temp 36.6 C 10/31/18 07:07 Pulse 62 10/31/18 07:07 Resp 18 10/31/18 07:07 BP 117/68 10/31/18 07:07 Pulse Ox 95 10/31/18 07:07 Physical Exam: General: no distress Eyes: normal inspection, PERLL Respiratory: chest non tender, clear to auscultation, normal breath sounds, no respiratory distress, no accessory muscle use Cardiac: regular rate and rhythm, no rub or gallop, no murmur, no edema, no jvd GI/: active bowel sounds, no abd pain or tenderness, soft, non distended Extremities: normal range of motion, normal strength, non tender Neuro/Psych: alert and oriented x 3, worried mood and affect Skin: normal color, dry Results & Data Laboratory Results Abnormal lab results 10/30/18 10/30/18 10/30/18 Range/Units 12:04 16:55 20:40 Potassium (3.5-5.1) mmol/L Chloride (98-107) mmol/L Glucose (70-99) mg/dl POC Glucose 210 H 240 H 249 H (70-99) Calcium (8.5-10.1) mg/dl AST (15-37) U/L ALT (12-78) U/L Alkaline Phosphatase (45-117) U/L Total Protein (6.4-8.2) gm/dl Albumin (3.4-5.0) gm/dl Albumin/Globulin Ratio (0.9-2) 10/31/18 10/31/18 10/31/18 Range/Units 00:48 03:40 05:56 Potassium 3.4 L D (3.5-5.1) mmol/L Chloride 108 H (98-107) mmol/L Glucose 128 H (70-99) mg/dl POC Glucose 162 H 122 H (70-99) Calcium 8.1 L (8.5-10.1) mg/dl AST 101 H (15-37) U/L ALT 420 H (12-78) U/L Alkaline Phosphatase 240 H (45-117) U/L Total Protein 6.2 L (6.4-8.2) gm/dl Albumin 2.8 L (3.4-5.0) gm/dl Albumin/Globulin Ratio 0.8 L (0.9-2) 10/31/18 Range/Units 08:08 Potassium (3.5-5.1) mmol/L Chloride (98-107) mmol/L Glucose (70-99) mg/dl POC Glucose 126 H (70-99) Calcium (8.5-10.1) mg/dl AST (15-37) U/L ALT (12-78) U/L Alkaline Phosphatase (45-117) U/L Total Protein (6.4-8.2) gm/dl Albumin (3.4-5.0) gm/dl Albumin/Globulin Ratio (0.9-2)
[2018-10-31] MEDS ORDERED: POTASSIUM CHLORIDE 10 MEQ TABCR PO STA (10:19)
[2018-10-31] MEDS: PANTOprazole 40 MG in SYRINGE 0 ML IV SCH (10:20)
--- NOTE | 2018-10-31 14:21 | Anesthesiology Progress Note ---
Date of Service October 31, 2018 I have discussed this patient's condition with Dr Barrow and hospitalist,Riana Courtney.Pt is awaiting echo and cardiology consult.Pt has been treated with furosemide for increasing pulmonary vascular congestion.Pt has Q waves on anterior leads of EKG.Pt has poorly controlled DM ,as evidenced by HgB A1C 9.4.Pt also has father and brother that had early deaths from CAD. I feel it is more prudent to await the appropriate consults and medical optimizing prior to surgery.Again,this was discussed with Dr Barrow and Riana Courtney , and they are in agreement that surgery be postponed. Physical Exam Vital Signs Last Vital Signs Temp 36.6 C 10/31/18 07:07 Pulse 62 10/31/18 07:07 Resp 18 10/31/18 07:07 BP 117/68 10/31/18 07:07 Pulse Ox 95 10/31/18 07:07 Results & Data Medications Administered Ciprofloxacin (Cipro) 400 mg in 200 mls @ 100 mls/hr IV Q12H DENISE Stop: 11/08/18 15:59 Last Infusion: 10/31/18 06:56 Dose: 0 mls/hr Documented by: [id number] Admin: 10/31/18 04:58 Dose: 100 mls/hr Documented by: [id number] Infusion: 10/30/18 18:25 Dose: 0 mls/hr Documented by: [id number] Admin: 10/30/18 16:25 Dose: 100 mls/hr Documented by: [id number] Infusion: 10/30/18 06:12 Dose: 0 mls/hr Documented by: [id number] Infusion: 10/30/18 04:13 Dose: 100 mls/hr Documented by: [id number] Admin: 10/30/18 04:08 Dose: 200 mls/hr Documented by: [id number] Infusion: 10/29/18 17:52 Dose: 0 mls/hr Documented by: [id number] Admin: 10/29/18 16:48 Dose: 200 mls/hr Documented by: [id number] Metronidazole (Flagyl) 500 mg in 100 mls @ 100 mls/hr IV Q8H DENISE Stop: 11/08/18 11:59 Last Infusion: 10/31/18 12:17 Dose: 0 mls/hr Documented by: [id number] Admin: 10/31/18 11:17 Dose: 100 mls/hr Documented by: [id number] Infusion: 10/31/18 04:58 Dose: 0 mls/hr Documented by: [id number] Admin: 10/31/18 03:35 Dose: 100 mls/hr Documented by: [id number] Infusion: 10/30/18 22:46 Dose: 100 mls/hr Documented by: [id number] Infusion: 10/30/18 21:30 Dose: 0 mls/hr Documented by: [id number] Admin: 10/30/18 20:06 Dose: 100 mls/hr Documented by: [id number] Infusion: 10/30/18 20:06 Dose: 100 mls/hr Documented by: [id number] Infusion: 10/30/18 13:33 Dose: 0 mls/hr Documented by: [id number] Admin: 10/30/18 12:35 Dose: 100 mls/hr Documented by: [id number] Infusion: 10/30/18 04:09 Dose: 0 mls/hr Documented by: [id number] Admin: 10/30/18 03:09 Dose: 100 mls/hr Documented by: [id number] Infusion: 10/29/18 21:50 Dose: 0 mls/hr Documented by: [id number] Admin: 10/29/18 20:50 Dose: 100 mls/hr Documented by: [id number] Infusion: 10/29/18 12:53 Dose: 0 mls/hr Documented by: [id number] Admin: 10/29/18 11:09 Dose: 100 mls/hr Documented by: [id number] Pantoprazole Sodium 40 mg/ (Syringe) 10 mls @ 5 mls/min IV DAILY@1100 DENISE Stop: 11/28/18 10:59 Last Admin: 10/31/18 10:20 Dose: 5 mls/min Documented by: [id number] Admin: 10/30/18 10:32 Dose: 5 mls/min Documented by: [id number] Admin: 10/29/18 11:09 Dose: 5 mls/min Documented by: [id number] Levothyroxine Sodium (Synthroid) 200 mcg PO Miller@30 DENISE Stop: 11/30/18 06:29 Last Admin: 10/31/18 05:36 Dose: Not Given Documented by: [id number] Levothyroxine Sodium (Synthroid) 150 mcg PO [id number]@0630 DENISE Stop: 11/29/18 06:29 Last Admin: 10/30/18 06:11 Dose: 150 mcg Documented by: [id number] Ondansetron HCl (Zofran) 4 mg IV Q6H PRN PRN Reason: NAUSEA/VOMITING Stop: 11/28/18 06:01 Last Admin: 10/31/18 10:20 Dose: 4 mg Documented by: [id number] Sertraline HCl (Zoloft) 100 mg PO DAILY [facility] Stop: 11/29/18 08:59 Last Admin: 10/31/18 09:46 Dose: Not Given Documented by: [id number] Admin: 10/30/18 08:42 Dose: 100 mg Documented by: [id number]
--- NOTE | 2018-10-31 16:27 | Surgery Progress Note ---
Date of Service October 31, 2018 pt is doing fine, no abdominal pain, no nausea, no vomiting, Assessment & Plan (1) Choledocholithiasis: anesthesiologist recommend consult barback for cardiac clearance for laparosocpic cholecystectomy, pt agrees with the plan, the surgery is cancelled, will rechedule I answered all questions, Subjective Constitutional: as per Subjective / HPI Ear, Nose, Mouth, Throat: as per Subjective / HPI Respiratory: as per Subjective / HPI Cardiovascular: as per Subjective / HPI Gastrointestinal: + abdominal pain Genitourinary (Female): + as per Subjective / HPI Neurologic: as per Subjective / HPI Psychiatric: as per Subjective / HPI Hematologic / Lymphatic: as per Subjective / HPI Physical Exam Vital Signs (Past 24 Hours): Last Vital Signs Temp 36.8 C 10/31/18 15:22 Pulse 68 10/31/18 15:22 Resp 18 10/31/18 15:22 BP 107/54 L 10/31/18 15:22 Pulse Ox 91 10/31/18 15:22 Constitutional: WD/WN, vitals as above well developed and well nourished Neck: trachea midline, no thyromegaly Respiratory: normal respiratory effort, lungs clear to auscultation Cardiovascular: RRR, no murmur, no edema Rate/Rhythm: regular rate and regular rhythm Gastrointestinal (Abdomen): normal bowel sounds, soft, nontender, no hepa tosplenomegaly Percussion/Palpation: abdomen soft NT, ND Neurologic: awake Psychiatric: Orientation: alert and oriented x 3 Results & Data Laboratory Results Abnormal lab results 10/30/18 10/30/18 10/31/18 Range/Units 16:55 20:40 00:48 Potassium (3.5-5.1) mmol/L Chloride (98-107) mmol/L Glucose (70-99) mg/dl POC Glucose 240 H 249 H 162 H (70-99) Calcium (8.5-10.1) mg/dl AST (15-37) U/L ALT (12-78) U/L Alkaline Phosphatase (45-117) U/L Total Protein (6.4-8.2) gm/dl Albumin (3.4-5.0) gm/dl Albumin/Globulin Ratio (0.9-2) 10/31/18 10/31/18 10/31/18 Range/Units 03:40 05:56 08:08 Potassium 3.4 L D (3.5-5.1) mmol/L Chloride 108 H (98-107) mmol/L Glucose 128 H (70-99) mg/dl POC Glucose 122 H 126 H (70-99) Calcium 8.1 L (8.5-10.1) mg/dl AST 101 H (15-37) U/L ALT 420 H (12-78) U/L Alkaline Phosphatase 240 H (45-117) U/L Total Protein 6.2 L (6.4-8.2) gm/dl Albumin 2.8 L (3.4-5.0) gm/dl Albumin/Globulin Ratio 0.8 L (0.9-2) 10/31/18 Range/Units 12:06 Potassium (3.5-5.1) mmol/L Chloride (98-107) mmol/L Glucose (70-99) mg/dl POC Glucose 167 H (70-99) Calcium (8.5-10.1) mg/dl AST (15-37) U/L ALT (12-78) U/L Alkaline Phosphatase (45-117) U/L Total Protein (6.4-8.2) gm/dl Albumin (3.4-5.0) gm/dl Albumin/Globulin Ratio (0.9-2)
[2018-10-31] MEDS ORDERED: POTASSIUM CHLORIDE 10 MEQ TABCR PO ONE (19:08)
[2018-10-31] MEDS: INSULIN GLARGINE SOLOSTAR 100 UNITS/ML 3 ML PEN SC SCH (21:15)
[2018-11-01] MEDS: metroNIDAZOLE 500 MG/100 ML BAG IV SCH ×3 (03:48→19:47)
[2018-11-01] MEDS: CIPROFLOXACIN 400 MG/200 ML BAG IV SCH ×2 (03:48→13:16)
[2018-11-01 05:49] LABS: Hematocrit (blood only) 37.4 % (37-47); Hemoglobin 12.7 g/dL (12.0-16.0); Mean Platelet Volume 9.4 fL (7.4-10.4); Platelet Count 281 K/uL (130-400); RDW Coefficient of Variation 13.4 % (11.5-14.5); RDW Standard Deviation 41.3 fL (36.4-46.3); White Blood Count 6.89 K/uL (4.8-10.8)
[2018-11-01] MEDS: INSULIN ASPART 100 UNITS/ML 3 ML PEN SC SCH ×4 (06:19→21:39)
[2018-11-01] MEDS: LEVOTHYROXINE SODIUM 150 MCG TABLET PO SCH (06:20)
[2018-11-01 06:24] LABS: Albumin Level 2.8 gm/dl (3.4-5.0); BUN Creatinine Ratio 13.5 (10-20); Calcium 8.4 mg/dl (8.5-10.1); Creatinine Clr Calc Pharmacy 113.3 ml/min; Est GFR (African American) 117.3; Est GFR (Non-African American) 101.2; Potassium 3.2 mmol/L (3.5-5.1)
[2018-11-01 06:27] LABS: Albumin Globulin Ratio 0.8 (0.9-2); Bilirubin,Total 0.7 mg/dl (0.2-1); Globulin 3.5 gm/dl (2.5-4.0); Total Protein 6.3 gm/dl (6.4-8.2)
[2018-11-01] MEDS ORDERED: POTASSIUM CHLORIDE 20 MEQ TABCR PO STA (08:39)
--- NOTE | 2018-11-01 09:03 | Cardiology Consultation ---
Date of Consultation November 01, 2018 Assessment & Plan (1) Pulmonary vascular congestion: Mrs. Patel is a 52 year old female with a history of Type 2 DM x 20 years, Hypertension, Dyslipidemia, Hypothyroidism, and Depression who was admitted to [facility] on 10/29/2018 with Abdominal Pain, Abdominal Bloating, Nausea, Vomiting, and Abnormal LFT's secondary to Choledocholithiasis. Scheduled to undergo surgical intervention today. Patient's initial EKG showed anterior Q waves and after having a positive fluid balance of > 12 liters she developed evidence of pulmonary edema. Echocardiogram was performed on 10/31/2018 and showed normal LV size, wall motion, and systolic function. LVEF 55%, no significant valvular abnormalities. Pulmonary Vascular Congestion is secondary to Iatrogenic Hypervolemia -- she does NOT have any evidence of LV systolic or diastolic dysfunction and she is approaching a euvolemic state. -- Continue IV Lasix. -- Cautious use of IV fluids. -- Monitor daily I&O's, body weights. Present on Admission?: No (2) Choledocholithiasis with obstruction: Based on functional status without limiting cardiopulmonary symptoms, normal LV systolic function -- Patient is an acceptable surgical risk to proceed with surgery as scheduled. There is no need for further cardiac work-up at this time. Present on Admission?: Yes (3) Hypertension: Her BP's appear to be well controlled. -- Continue Hydralazine as needed. -- Resume Lisinopril 40 daily after surgery and when BP allows. Present on Admission?: Yes (4) Hyperlipidemia: Maintained on chronic statin therapy which is currently on hold due to abnormal LFT's. -- Resume usual dose of Pravastatin post-operatively. -- Resume Aspirin 81 mg daily after surgery for primary prevention. Supervising Physician Co-Signing Physician Notes Zana Horton MD Patient seen and examined. Agree with above. History of Present Illness Reason for Consultation: -- Preoperative Cardiologic Evaluation. -- Iatrogenic Hypervolemia. -- Cardiac Risk Factors. Requesting Physician: Warren Barragan Attending Physician: Zana Horton MD History of Present Illness Mrs. Patel is a 52 year old female with a history of Type 2 DM x 20 years, Hypertension, Dyslipidemia, Hypothyroidism, and Depression who was admitted to [facility] on 10/29/2018 with Abdominal Pain, Abdominal Bloating, Nausea, Vomiting, and Abnormal LFT's secondary to Choledocholithiasis. Scheduled to undergo surgical intervention today. Patient's initial EKG showed anterior Q waves and after having a positive fluid balance of > 12 liters she developed evidence of pulmonary edema. Echocardiogram was performed on 10/31/2018 and showed normal LV size, wall motion, and systolic function. LVEF 55%, no significant valvular abnormalities. 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 She does admit to mild exertional dyspnea if she eats a large meal and then tries to walk up stairs or up a grade -- but this resolves very quickly. She specifically denies any exertional chest pain, heaviness, tightness, pressure, or discomfort. She denies any exertional neck, jaw, back, or arm pain. She denies any SOB at rest, unusual BAEZ, or any recent changes in her exertional tolerance. She denies any palpitations, syncope, or near syncope. Allergies Allergy/AdvReac Type Severity Reaction Status Date / Time clavulanic acid Allergy Mild liver Verified 10/29/18 02:04 damage Penicillins Allergy Mild liver Verified 10/29/18 02:04 damage Home Medications Home Medications Medication Instructions Recorded Confirmed Type aspirin 81 mg PO DAILY 10/29/18 10/29/18 History cholecalciferol (vitamin D3) 2,000 unit PO DAILY 10/29/18 10/29/18 History [Vitamin D3] insulin aspart U-100 [Novolog 0 unit SUBCUT DIRECTED 10/29/18 10/29/18 History Flexpen U-100 Insulin] levothyroxine 150 mcg PO 6XWK 10/29/18 10/29/18 History levothyroxine 200 mcg PO DIRECTED 10/29/18 10/29/18 History lisinopril 40 mg PO DAILY 10/29/18 10/29/18 History metformin 1,000 mg PO BID 10/29/18 10/29/18 History multivitamin 1 tab PO DAILY 10/29/18 10/29/18 History omega 3-iwk-zhg-fish oil [[place]-3] 1 cap PO DAILY 10/29/18 10/29/18 History pravastatin [Pravachol] 40 mg PO DAILY 10/29/18 10/29/18 History sertraline 100 mg PO DAILY 10/29/18 10/29/18 History insulin degludec [Tresiba 70 unit SUBCUT DAILY 10/30/18 10/31/18 History FlexTouch U-100] acetaminophen [Mapap 650 mg PO Q6H PRN 1 Days #1 tab 11/02/18 Rx (acetaminophen)] ondansetron HCl [Zofran] 4 mg PO Q8H PRN #10 tab 11/02/18 Rx tramadol 50 mg PO Q8H PRN #9 tab 11/02/18 Rx Patient History Medical History Choledocholithiasis (Acute) Asymptomatic now. Ok to proceed with choledocolithiasis. Note HB A1C 9.4. This may play into surgical plans; per surgery team. No additional reccs for now. Hyperlipemia Hypertension Hypothyroid Obesity Type 2 diabetes mellitus insulin dependent Surgical History History of ERCP Social History Communication Ability: Effective Beliefs That Will Affect Care: None marital status: Current Living Situation: Spouse Current Living Situation Comment: x2 sons & cats Other Information That Helps Us Care for You: No Feels Safe at Home: Yes Safety Concerns: Feels Safe At This Time Smoking Status: Never smoker Hx Alcohol Use: Yes Hx Substance Use: No Physical Exam Vital Signs (Past 24 Hours): Last Vital Signs Temp 36.6 C 11/01/18 07:45 Pulse 68 11/01/18 07:45 Resp 18 11/01/18 07:45 BP 127/73 11/01/18 07:45 Pulse Ox 95 11/01/18 07:45 Physical Exam: General: Patient in no acute distress. HEENT: Head is atraumatic, normocephalic. EOMs intact. Sclerae anicteric. Facies symmetric. No perioral cyanosis. Xanthelasmic plaques are present on eyelids. Neck: No JVD. Carotid upstrokes +2 bilaterally without bruits. JVP is just above the level of the clavicle sitting upright. Chest and Lungs: Clear to auscultation throughout all lung tolentino, no wheezes, rales, or rhonchi. CVS: S1 and S2 are regular without murmurs, gallops, or rubs. PMI is nondisplaced. No lifts, heaves, or thrills. No abdominal aortic or renal bruits. Abdominal Exam: Bowel sounds present. Extremities: No clubbing, cyanosis, or edema. Intact posterior tibial and radial pulses bilaterally. Neurologic Exam: Patient is awake, alert, and oriented. Pleasant and cooperative. Answers questions appropriately. Speech is clear. Normal movement in all 4 extremities. Gait pattern is unremarkable. Echocardiogram 10/31/2018: -- Normal LV size, wall motion, and systolic function. -- LVEF 55%. -- No significant valvular abnormalities. EKG 10/30/2018: -- NSR with RSR' complexes in V1 and V2, normal QRS duration. Results & Data Laboratory Results Laboratory Results - last 24 hr 10/31/18 10/31/18 10/31/18 12:06 17:04 21:00 WBC RBC Hgb Hct MCV MCH MCHC RDW Std Deviation RDW Coeff of Didier Plt Count MPV Sodium Potassium Chloride Carbon Dioxide Anion Gap BUN Creatinine Est Cr Clr Drug Dosing Est GFR ( Amer) Est GFR (Non-Af Amer) BUN/Creatinine Ratio Glucose POC Glucose 167 H 144 H 191 H Calcium Total Bilirubin AST ALT Alkaline Phosphatase Total Protein Albumin Globulin Albumin/Globulin Ratio 10/31/18 11/01/18 11/01/18 23:38 05:33 05:33 WBC 6.89 RBC 4.40 Hgb 12.7 Hct 37.4 MCV 85.0 MCH 28.9 MCHC 34.0 RDW Std Deviation 41.3 RDW Coeff of Didier 13.4 Plt Count 281 MPV 9.4 Sodium 142 Potassium 3.2 L Chloride 106 Carbon Dioxide 30 Anion Gap 7.0 BUN 9 Creatinine 0.64 Est Cr Clr Drug Dosing 113.3 Est GFR ( Amer) 117.3 Est GFR (Non-Af Amer) 101.2 BUN/Creatinine Ratio 13.5 Glucose 109 H POC Glucose 193 H Calcium 8.4 L Total Bilirubin 0.7 AST 57 H ALT 307 H Alkaline Phosphatase 271 H Total Protein 6.3 L Albumin 2.8 L Globulin 3.5 Albumin/Globulin Ratio 0.8 L 11/01/18 05:59 WBC RBC Hgb Hct MCV MCH MCHC RDW Std Deviation RDW Coeff of Didier Plt Count MPV Sodium Potassium Chloride Carbon Dioxide Anion Gap BUN Creatinine Est Cr Clr Drug Dosing Est GFR ( Amer) Est GFR (Non-Af Amer) BUN/Creatinine Ratio Glucose POC Glucose 113 H Calcium Total Bilirubin AST ALT Alkaline Phosphatase Total Protein Albumin Globulin Albumin/Globulin Ratio Medications Administered Active Medications Generic Name Dose Route Start Last Admin Trade Name Freq PRN Reason Stop Dose Admin Dextrose 25 - 50 ml 10/29/18 06:02 Dextrose 50% IV 11/28/18 06:01 UD PRN Hypoglycemia Protocol Protocol Glucagon 1 mg 10/29/18 06:02 Glucagen SQ 11/28/18 06:01 UD PRN Hypoglycemia Protocol Protocol Glucose 15 - 30 gm 10/29/18 06:02 Glucose 40% PO 11/28/18 06:01 UD PRN Hypoglycemia Protocol Protocol Glucose 4 - 8 tabs 10/29/18 06:02 Dex4 Glucose PO 11/28/18 06:01 UD PRN Hypoglycemia Protocol Protocol Ciprofloxacin 400 mg in 200 mls @ 100 mls/hr 10/29/18 16:00 11/01/18 06:19 Cipro IV 11/08/18 15:59 Infused Q12H DENISE Infusion Metronidazole 500 mg in 100 mls @ 100 mls/hr 10/29/18 12:00 11/01/18 06:18 Flagyl IV 11/08/18 11:59 Infused Q8H DENISE Infusion Pantoprazole Sodium 40 mg/ 10 mls @ 5 mls/min 10/29/18 11:00 10/31/18 10:20 Syringe IV 11/28/18 10:59 5 mls/min [email or web address]@[email or web address] DENISE Administration Insulin Aspart 0 units 10/31/18 18:00 11/01/18 06:19 Novolog Flexpen SC 11/30/18 17:59 Not Given Q6 DENISE Protocol Insulin Glargine 0 units 10/31/18 21:00 10/31/18 21:15 Lantus Solostar Pen SC 11/30/18 20:59 35 units HS DENISE Administration Protocol Levothyroxine Sodium 200 mcg 10/31/18 06:30 10/31/18 05:36 Synthroid PO 11/30/18 06:29 Not Given [email or web address] DENISE Levothyroxine Sodium 150 mcg 10/30/18 06:30 11/01/18 06:20 Synthroid PO 11/29/18 06:29 Not Given [email or web address] DENISE Miscellaneous 15 - 30 gm 10/29/18 06:02 Carbohydrates For Hypoglycemia PO 11/28/18 06:01 UD PRN Hypoglycemia Treatment Miscellaneous Information 1 ea 10/30/18 18:57 Consult Glycemic Management Pharmacy N/A 11/29/18 18:56 UD PRN Consult Morphine Sulfate 4 mg 10/29/18 06:02 Morphine Sulfate IV 11/12/18 06:01 Q3H PRN Pain Ondansetron HCl 4 mg 10/29/18 06:02 10/31/18 10:20 Zofran IV 11/28/18 06:01 4 mg Q6H PRN Administration NAUSEA/VOMITING Sertraline HCl 100 mg 10/30/18 09:00 10/31/18 09:46 Zoloft PO 11/29/18 08:59 Not Given DAILY DENISE
[2018-11-01] MEDS: SERTRALINE HCL 100 MG TABLET PO SCH (09:18)
--- NOTE | 2018-11-01 10:08 | Surgery Progress Note ---
Date of Service November 01, 2018 pt is stable, no abdominal pain, fork lift mechanic saw pt, thanks, Assessment & Plan (1) Choledocholithiasis: I reviewed fork lift mechanic consult note, thanks, pt agrees with the surgery, laparosocpic cholecystectomy, possible open or cholangiogram, D/W benefits, risks nad alternatives of the surgery, pt understood, I answered all questions, Subjective Constitutional: as per Subjective / HPI Ear, Nose, Mouth, Throat: as per Subjective / HPI Respiratory: as per Subjective / HPI Cardiovascular: as per Subjective / HPI Gastrointestinal: + abdominal pain Genitourinary (Female): + as per Subjective / HPI Neurologic: as per Subjective / HPI Psychiatric: as per Subjective / HPI Hematologic / Lymphatic: as per Subjective / HPI Physical Exam Vital Signs (Past 24 Hours): Last Vital Signs Temp 36.6 C 11/01/18 07:45 Pulse 68 11/01/18 07:45 Resp 18 11/01/18 07:45 BP 127/73 11/01/18 07:45 Pulse Ox 95 11/01/18 07:45 Constitutional: WD/WN, vitals as above well nourished Neck: trachea midline, no thyromegaly Respiratory: normal respiratory effort, lungs clear to auscultation Cardiovascular: RRR, no murmur, no edema Gastrointestinal (Abdomen): Percussion/Palpation: abdomen soft no tenderness, Neurologic: awake Psychiatric: Orientation: alert and oriented x 3 Results & Data Laboratory Results Abnormal lab results 10/31/18 10/31/18 10/31/18 Range/Units 12:06 17:04 21:00 Potassium (3.5-5.1) mmol/L Glucose (70-99) mg/dl POC Glucose 167 H 144 H 191 H (70-99) Calcium (8.5-10.1) mg/dl AST (15-37) U/L ALT (12-78) U/L Alkaline Phosphatase (45-117) U/L Total Protein (6.4-8.2) gm/dl Albumin (3.4-5.0) gm/dl Albumin/Globulin Ratio (0.9-2) 10/31/18 11/01/18 11/01/18 Range/Units 23:38 05:33 05:59 Potassium 3.2 L (3.5-5.1) mmol/L Glucose 109 H (70-99) mg/dl POC Glucose 193 H 113 H (70-99) Calcium 8.4 L (8.5-10.1) mg/dl AST 57 H (15-37) U/L ALT 307 H (12-78) U/L Alkaline Phosphatase 271 H (45-117) U/L Total Protein 6.3 L (6.4-8.2) gm/dl Albumin 2.8 L (3.4-5.0) gm/dl Albumin/Globulin Ratio 0.8 L (0.9-2)
[2018-11-01] MEDS: PANTOprazole 40 MG in SYRINGE 0 ML IV SCH (10:37)
[2018-11-01] MEDS ORDERED: PROPOFOL IV EMULSION 10 MG/ML 20 ML VIAL IV ONE (11:58)
[2018-11-01] MEDS ORDERED: LIDOCAINE HCL 2% 2 ML VIAL/AMP(20MG/ML) INFIL ONE (11:58)
[2018-11-01] MEDS ORDERED: DEXAMETHASONE SOD INJ 4 MG/ML VIAL ONE (12:02)
[2018-11-01] MEDS ORDERED: ROCURONIUM BROMIDE 10 MG/ML 5 ML VIAL ONE (12:02)
[2018-11-01] MEDS ORDERED: ONDANSETRON INJ 2 MG/ML 2 ML VIAL ONE (12:02)
[2018-11-01] MEDS ORDERED: MIDAZOLAM HCL 1 MG/ML 2ML VIAL ONE (12:05)
[2018-11-01] MEDS ORDERED: HYDROmorphone INJ 2 MG/ML SYR/VIAL ONE (12:06)
[2018-11-01] MEDS ORDERED: BACITRACIN OINT 15 GM TUBE ONE (12:13)
[2018-11-01] MEDS ORDERED: BUPIVACAINE 0.5 % 5 MG/1 ML MPF 30ML VIAL ONE (12:14)
[2018-11-01] MEDS ORDERED: LIDOCAINE HCL 1% 20 ML VIAL ONE (12:14)
[2018-11-01] MEDS ORDERED: fentaNYL citrate 100 MCG/2 ML VIAL IV PRN (12:15)
[2018-11-01] MEDS ORDERED: ATROPINE SULFATE 0.1 MG/ML 10ML SYR IV PRN (12:15)
[2018-11-01] MEDS ORDERED: ePHEDrine sulfate 50 MG/ML AMP IV PRN (12:15)
[2018-11-01] MEDS ORDERED: ONDANSETRON INJ 2 MG/ML 2 ML VIAL IV PRN (12:15)
--- NOTE | 2018-11-01 12:22 | Anesthesiology Consultation ---
Date of Service November 01, 2018 Assessment & Plan (1) Encounter for pre-operative examination: Chart Review Chart Review: Acceptable Risk for Surgery and Patient NOT seen in Pre Admission Testing Consults Requested none NPO Date Last Intake of Fluids: 11/01/18 Time Last Intake of Fluids: 09:30 Last Intake of Fluids Comment: few sips with am meds Date Last Intake of Solids: 10/31/18 Time Last Intake of Solids: 23:59 History Surgery Operation Date: 10/29/18 08:45 Proposed Procedures p Endoscopic Retrograde Cholangiopancreatogram - Marcelino Evans Operation Date: 10/31/18 10:00 Proposed Procedures p Laparoscopic Cholecystectomy - Tory Barrow MD Operation Date: 11/01/18 13:45 Proposed Procedures p Laparoscopic Cholecystectomy - Tory Barrow MD Height/Weight Height: 5 ft 7 in Weight: 86.1 kg Allergies Allergy/AdvReac Type Severity Reaction Status Date / Time clavulanic acid Allergy Mild liver Verified 10/29/18 02:04 damage Penicillins Allergy Mild liver Verified 10/29/18 02:04 damage Medications Home Medications Medication Instructions Recorded Confirmed Last Taken aspirin 81 mg PO DAILY 10/29/18 10/29/18 Unknown cholecalciferol (vitamin D3) 2,000 unit PO DAILY 10/29/18 10/29/18 Unknown [Vitamin D3] insulin aspart U-100 [Novolog 0 unit SUBCUT DIRECTED 10/29/18 10/29/18 Un known Flexpen U-100 Insulin] levothyroxine 150 mcg PO 6XWK 10/29/18 10/29/18 Unknown levothyroxine 200 mcg PO DIRECTED 10/29/18 10/29/18 Unknown lisinopril 40 mg PO DAILY 10/29/18 10/29/18 Unknown metformin 1,000 mg PO BID 10/29/18 10/29/18 Unknown multivitamin 1 tab PO DAILY 10/29/18 10/29/18 Unknown omega 5-ttx-zfn-fish oil [[place]-3] 1 cap PO DAILY 10/29/18 10/29/18 Unknown pravastatin [Pravachol] 40 mg PO DAILY 10/29/18 10/29/18 Unknown sertraline 100 mg PO DAILY 10/29/18 10/29/18 Unknown insulin degludec [Tresiba 70 unit SUBCUT DAILY 10/30/18 10/31/18 Unknown FlexTouch U-100] Active Medications Generic Name Dose Route Start Last Admin Trade Name Freq PRN Reason Stop Dose Admin Ciprofloxacin 400 mg in 200 mls @ 100 mls/hr 10/29/18 16:00 11/01/18 06:19 Cipro IV 11/08/18 15:59 Infused Q12H DENISE Infusion Metronidazole 500 mg in 100 mls @ 100 mls/hr 10/29/18 12:00 11/01/18 11:51 Flagyl IV 11/08/18 11:59 Infused Q8H DENISE Infusion Pantoprazole Sodium 40 mg/ 10 mls @ 5 mls/min 10/29/18 11:00 11/01/18 10:37 Syringe IV 11/28/18 10:59 5 mls/min DAILY@1100 DENISE Administration Insulin Aspart 0 units 10/31/18 18:00 11/01/18 12:10 Novolog Flexpen SC 11/30/18 17:59 Not Given Q6 DENISE Protocol Insulin Glargine 0 units 10/31/18 21:00 10/31/18 21:15 Lantus Solostar Pen SC 11/30/18 20:59 35 units HS DENISE Administration Protocol Levothyroxine Sodium 200 mcg 10/31/18 06:30 10/31/18 05:36 Synthroid PO 11/30/18 06:29 Not Given [email or web address] [facility] Levothyroxine Sodium 150 mcg 10/30/18 06:30 11/01/18 06:20 Synthroid PO 11/29/18 06:29 Not Given [email or web address] [facility] Ondansetron HCl 4 mg 10/29/18 06:02 10/31/18 10:20 Zofran IV 11/28/18 06:01 4 mg Q6H PRN Administration NAUSEA/VOMITING Sertraline HCl 100 mg 10/30/18 09:00 11/01/18 09:18 Zoloft PO 11/29/18 08:59 100 mg DAILY DENISE Administration Past Medical History Medical History Choledocholithiasis (Acute) Asymptomatic now. Ok to proceed with choledocolithiasis. Note HB A1C 9.4. This may play into surgical plans; per surgery team. No additional reccs for now. Hyperlipemia Hypertension Hypothyroid Obesity Type 2 diabetes mellitus insulin dependent Past Surgical History Surgical History History of ERCP 10/29/18. easy airway Past Anesthesia History No Hx of Anesthesia Complications and No Family Hx of Anesthesia Complications Social History Smoking Status: Never smoker Hx Alcohol Use: Yes alcohol intake frequency: holidays/special occasions only Hx Substance Use: No substance use type: does not use Exercise / Class Metabolic Activity II 4-5 Yardwork/Stairs/Walk up hill Physical Exam Vital Signs Last Vital Signs Temp 36.6 C 11/01/18 07:45 Pulse 68 11/01/18 07:45 Resp 18 11/01/18 07:45 BP 127/73 11/01/18 07:45 Pulse Ox 95 11/01/18 07:45 Testing Electrocardiogram Date: 10/30/18 Findings: + NSR @ (at 65;low voltage) Chest X-Ray Date: 10/31/18 Findings: + pulmonary vascular congestion Echocardiogram Date: 10/24/18 EF: 55% LV Function: normal Valvular Disease: + MR (Mild) Laboratory Results 11/01/18 05:33 11/01/18 05:33 PT 10.1 Seconds (9.0-12.0) 10/29/18 01:42 INR 1.0 (0.9-1.1) 10/29/18 01:42 APTT 25.1 Seconds (21.0-31.0) 10/29/18 01:42 Hemoglobin A1c 9.4 % (4.5-5.6) H 10/30/18 06:27 Urine Color Dark Yellow 10/29/18 02:50 Urine Appearance Cloudy (Clear) H 10/29/18 02:50 Urine pH 7.5 (4.5-7.5) 10/29/18 02:50 Ur Specific [place] 1.024 (1.000-1.030) 10/29/18 02:50 Urine Protein Negative (Negative) 10/29/18 02:50 Urine Glucose (UA) Negative (Negative) 10/29/18 02:50 Urine Ketones Negative (Negative) 10/29/18 02:50 Urine Nitrite Positive (Negative) H 10/29/18 02:50 Ur Leukocyte Esterase 2+ (Negative) H 10/29/18 02:50 Urine WBC (Auto) >30 /hpf (0-5) H 10/29/18 02:50 Urine RBC (Auto) 0-4 /hpf (0-4) 10/29/18 02:50 U Hyaline Cast (Auto) 10-30 /lpf (0-5) H 10/29/18 02:50 U Epithel Cells (Auto) 10-20 /lpf (0-5) H 10/29/18 02:50 Urine Bacteria (Auto) 2+ (Negative) H 10/29/18 02:50 Urine Test Negative (Negative) 10/29/18 02:50 10/29/18 02:50 Urine Culture - Final Urine,Clean Catch Escherichia coli 11/01/18 11/01/18 12:07 05:59 POC Glucose 120 H 113 H 10/29/18 02:50 Urine Test Negative
--- NOTE | 2018-11-01 13:08 | History & Physical Bridge Note ---
Date of Service November 01, 2018 History & Physical Bridge Note I have examined the patient, reviewed the History & Physical and in the interval since the performance of the History & Physical I have noted the following changes of clinical significance: no changes noted
[2018-11-01] MEDS ORDERED: ePHEDrine sulfate 50 MG/ML SYR ONE (13:53)
[2018-11-01] MEDS ORDERED: GLYCOPYRROLATE 0.2 MG/ML VIAL ONE (15:03)
[2018-11-01] MEDS ORDERED: NEOSTIGMINE METHYLSULFATE 5 MG/5 ML SYR ONE (15:03)
--- NOTE | 2018-11-01 15:20 | Post Operative Brief Note ---
Immediate Post Op Note v1 Date of Surgery November 01, 2018 Pre & Post Diagnosis Operation Date: 10/29/18 08:45 Pre-Op Diagnosis: CHOLEDOCHOLITHIASIS Post-Op Diagnosis: CHOLEDOCHOLITHIASIS Operation Date: 10/31/18 10:00 <No data on this case meets the specified criteria> Operation Date: 11/01/18 13:45 Pre-Op Diagnosis: CHOLEDOCHOLITHIASIS, acute cholecystitis Post-Op Diagnosis: CHOLEDOCHOLITHIASIS acute cholecystitis Procedure Operation Date: 10/29/18 08:45 Actual Procedures p Endoscopic Retrograde Cholangiopancreatogram(Not Applicable) - Marcelino Evans Operation Date: 10/31/18 10:00 <No data on this case meets the specified criteria> Operation Date: 11/01/18 13:45 Actual Procedures p Laparoscopic Cholecystectomy(Not Applicable) - Tory Barrow MD Surgeon Tory Barrow MD Dental Laboratory Supervisor surgical physician assistant Estimated Blood Loss 20 Findings Consistent with Post-Op Diagnosis significant inflammation on gallbladder wall, Fluids 1400ml Specimens gallbladder Drains Jed-Tuttle Drain (10 FR ROUND) Anesthesia Type General Complications none Disposition Accompanied Patient To Recovery: Yes Disposition: Recovery Room Overlapping Procedure I was immediately available: during the entire case.
--- NOTE | 2018-11-01 16:12 | Anesthesiology Progress Note ---
Date of Service November 01, 2018 Anesthesia Post Procedure Vital Signs Vital Signs: Temp Pulse Pulse Resp BP BP Pulse Ox 11/01/18 15:55 83 14 150/96 H 96 11/01/18 15:45 76 14 162/94 H 94 11/01/18 15:37 36.2 C L 85 14 171/85 H 90 11/01/18 12:37 36.7 C 65 20 112/78 97 11/01/18 07:45 36.6 C 68 18 127/73 95 10/31/18 23:09 36.4 C L 67 18 127/82 94 Pain Intensity Abdomen: Pain Intensity: 4 Notes Mental Status: alert / awake / arousable and participated in evaluation Patient Amnestic to Procedure: Yes Nausea / Vomiting: adequately controlled Pain: adequately controlled Airway Patency, RR, SpO2: stable & adequate BP & HR: stable & adequate Hydration State: stable & adequate Anesthetic Complications: no major complications apparent and Pt Satisfied with anesthetic care
[2018-11-01] MEDS ORDERED: INSULIN ASPART 100 UNITS/ML 3 ML PEN SQ SCH (16:45)
[2018-11-01] MEDS ORDERED: Nursing to Pharmacy Communication ONE (16:58)
--- NOTE | 2018-11-01 17:15 | Progress Note ---
DATE: 11/01/2018 SUBJECTIVE: The patient underwent an ERCP on ThursdayOctober 29 and had a sphincterotomy with balloon extraction of some sludge and small stones. She underwent a cholecystectomy earlier today by Dr. Barrow and is doing well. She has a little bit of postoperative discomfort, but overall is feeling better. PHYSICAL EXAMINATION: VITAL SIGNS: Show blood pressure 152/85, pulse 76. She is afebrile. IMPRESSION: The patient is doing well following laparoscopic cholecystectomy earlier today. Plan on signing off at this point. Please contact me if you need any further GI input.
--- NOTE | 2018-11-01 17:42 | Hospitalist Progress Note ---
Date of Service November 01, 2018 Assessment & Plan (1) Choledocholithiasis with obstruction: - S/p ERCP on 10/29/18 with stone removal and biliary sphincterectomy - S/p lap laura today, doing well post op. - Continue Cipro/Flagyl IV for empiric coverage. - General surgery following, appreciate input. - PPI IV daily. - Tramadol 50 mg q6hr prn pain; pt. does not want to take Morphine. (2) Abnormal liver function tests: - Transaminitis now resolving following ERCP. - Abdominal CT additionally showed possible fatty infiltrate - will need to follow up as outpatient. (3) Pulmonary vascular congestion: - Chest XR 10/31: pulm vascular congestion and small pleural effusions. - Echo showed EF 55-60%, no abnormalities noted. - Did receive Lasix 40 mg IV x 1 dose; no further diuresis indicated. - Cardiology consulted, cleared for surgery today. (4) Insulin-requiring or dependent type II diabetes mellitus: - Hold Metformin 1000 mg BID and home Tresiba while inpatient. - Hgb A1C was 9.4 -- has been elevated in past per patient, has never been <8. Follows with endocrinology in [place]. - Pharmacy consulted for glycemic management. - Educated on lifestyle choices, weight loss, diet changes. (5) Hypothyroidism (acquired): - Continue Levothyroxine 150 mcg and 200 mcg on Sundays. - TSH pending in the AM. (6) Hypertension: - Continue Lisinopril 40 mg daily - Patient reports taking daily Claritin D at home - advised to avoid routine use of decongestants. (7) Hyperlipidemia: - Continue Pravastatin 40 mg daily and Aspirin 81 mg daily. (8) Depression: - Continue Sertraline 100 mg daily. (9) UTI (urinary tract infection): - UC positive for E. coli. - On Cipro per sensitivities. (10) Hypokalemia: - K level 3.2 -- ordered KCl 40 mEq PO. (11) DVT prophylaxis: - Lovenox subQ. Dispo: Discharge likely on 11/02. Supervising Physician Co-Signing Physician Notes Attending Attestation- Chart reviewed, care plan d/w BRYANT Garcia in detail. Pt is s/p ERCP earlier this admission with CBD stone extraction. Today underwent uncomplicated lap laura. Cont pain control. Cont antibiotics. Pt w/o bowel movement in multiple days - this needs to be followed carefully. Warren Barragan MD Subjective Pt. is doing well overall. Abd pain improved but she feels bloated/distended. Last BM was on Thursday of last week. S/p lap laura today, doing well post op. Review of Systems All systems reviewed & are unremarkable except as noted in HPI & below Constitutional: no fever, no chills, no fatigue, no weakness and no anorexia Respiratory: no cough and no dyspnea Cardiovascular: no chest pain, no palpitations, no syncope and no edema Gastrointestinal: + constipation; no abdominal pain, no nausea and no vomiting Genitourinary (Female): no difficulty urinating Musculoskeletal: no joint pain Allergy / Immunological: no rash Physical Exam Vital Signs (Past 24 Hours): Last Vital Signs Temp 36.5 C 11/01/18 17:05 Pulse 77 11/01/18 17:05 Resp 16 11/01/18 17:05 BP 138/78 11/01/18 17:05 Pulse Ox 95 11/01/18 17:05 Physical Exam: General: Resting comfortably in no apparent distress; A&OX3 HEENT: NC/AT; PERRLA with EOMI; [place] conjunctiva, MMM. Neck: Supple and nontender Cardiac: RRR w/o murmurs, gallops or rubs Lungs: CTA bilaterally; No rhonchi, wheezing, or rales Abdomen: Bowel normoactive X 4; Nontender to palpation Extremities: Warm. No edema present Neuro: No focal weakness Skin: No rash Results & Data Laboratory Results 11/01/18 11/01/18 11/01/18 Range/Units 16:30 15:38 12:07 WBC (4.8-10.8) K/uL RBC (4.2-5.4) M/uL Hgb (12.0-16.0) g/dL Hct (37-47) % MCV (80-100) fL MCH (25-34) pg MCHC (32-36) g/dL RDW Std Deviation (36.4-46.3) fL RDW Coeff of Didier (11.5-14.5) % Plt Count (130-400) K/uL MPV (7.4-10.4) fL Sodium (136-145) mmol/L Potassium (3.5-5.1) mmol/L Chloride (98-107) mmol/L Carbon Dioxide (21-32) mmol/L Anion Gap (3-11) BUN (7-18) mg/dl Creatinine (0.6-1.2) mg/dl Est Cr Clr Drug Dosing ml/min Est GFR ( Amer) Est GFR (Non-Af Amer) BUN/Creatinine Ratio (10-20) Glucose (70-99) mg/dl POC Glucose 151 H 146 H 120 H (70-99) Calcium (8.5-10.1) mg/dl Total Bilirubin (0.2-1) mg/dl AST (15-37) U/L ALT (12-78) U/L Alkaline Phosphatase (45-117) U/L Total Protein (6.4-8.2) gm/dl Albumin (3.4-5.0) gm/dl Globulin (2.5-4.0) gm/dl Albumin/Globulin Ratio (0.9-2) 11/01/18 11/01/18 11/01/18 Range/Units 05:59 05:33 05:33 WBC 6.89 (4.8-10.8) K/uL RBC 4.40 (4.2-5.4) M/uL Hgb 12.7 (12.0-16.0) g/dL Hct 37.4 (37-47) % MCV 85.0 (80-100) fL MCH 28.9 (25-34) pg MCHC 34.0 (32-36) g/dL RDW Std Deviation 41.3 (36.4-46.3) fL RDW Coeff of Didier 13.4 (11.5-14.5) % Plt Count 281 (130-400) K/uL MPV 9.4 (7.4-10.4) fL Sodium 142 (136-145) mmol/L Potassium 3.2 L (3.5-5.1) mmol/L Chloride 106 (98-107) mmol/L Carbon Dioxide 30 (21-32) mmol/L Anion Gap 7.0 (3-11) BUN 9 (7-18) mg/dl Creatinine 0.64 (0.6-1.2) mg/dl Est Cr Clr Drug Dosing 113.3 ml/min Est GFR ( Amer) 117.3 Est GFR (Non-Af Amer) 101.2 BUN/Creatinine Ratio 13.5 (10-20) Glucose 109 H (70-99) mg/dl POC Glucose 113 H (70-99) Calcium 8.4 L (8.5-10.1) mg/dl Total Bilirubin 0.7 (0.2-1) mg/dl AST 57 H (15-37) U/L ALT 307 H (12-78) U/L Alkaline Phosphatase 271 H (45-117) U/L Total Protein 6.3 L (6.4-8.2) gm/dl Albumin 2.8 L (3.4-5.0) gm/dl Globulin 3.5 (2.5-4.0) gm/dl Albumin/Globulin Ratio 0.8 L (0.9-2) 10/31/18 10/31/18 Range/Units 23:38 21:00 WBC (4.8-10.8) K/uL RBC (4.2-5.4) M/uL Hgb (12.0-16.0) g/dL Hct (37-47) % MCV (80-100) fL MCH (25-34) pg MCHC (32-36) g/dL RDW Std Deviation (36.4-46.3) fL RDW Coeff of Didier (11.5-14.5) % Plt Count (130-400) K/uL MPV (7.4-10.4) fL Sodium (136-145) mmol/L Potassium (3.5-5.1) mmol/L Chloride (98-107) mmol/L Carbon Dioxide (21-32) mmol/L Anion Gap (3-11) BUN (7-18) mg/dl Creatinine (0.6-1.2) mg/dl Est Cr Clr Drug Dosing ml/min Est GFR ( Amer) Est GFR (Non-Af Amer) BUN/Creatinine Ratio (10-20) Glucose (70-99) mg/dl POC Glucose 193 H 191 H (70-99) Calcium (8.5-10.1) mg/dl Total Bilirubin (0.2-1) mg/dl AST (15-37) U/L ALT (12-78) U/L Alkaline Phosphatase (45-117) U/L Total Protein (6.4-8.2) gm/dl Albumin (3.4-5.0) gm/dl Globulin (2.5-4.0) gm/dl Albumin/Globulin Ratio (0.9-2)
[2018-11-01] MEDS ORDERED: TRAMADOL HCL 50 MG TABLET PO PRN (17:43)
[2018-11-01] MEDS ORDERED: METFORMIN HCL 500 MG TAB PO SCH (21:00)
[2018-11-01] MEDS: INSULIN GLARGINE SOLOSTAR 100 UNITS/ML 3 ML PEN SC SCH (21:37)
--- NOTE | 2018-11-02 00:32 | Operative Report ---
DATE OF OPERATION: 11/01/2018 PREOPERATIVE DIAGNOSES: Acute cholecystitis, cholelithiasis. POSTOPERATIVE DIAGNOSES: Acute cholecystitis, cholelithiasis. OPERATION: Laparoscopic cholecystectomy. SURGEON: Tory Barrow MD ANESTHESIA: General. ESTIMATED BLOOD LOSS: About 20 mL. FINDINGS: Acute cholecystitis and significant inflammation on the gallbladder wall. COMPLICATIONS: None. INDICATIONS FOR THE PROCEDURE: This is a 52-year-old female who was admitted to hospital for acute cholecystitis and cholelithiasis. The patient is status post endoscopic retrograde cholangiopancreatography for common bile duct stone and the patient will require to do laparoscopic cholecystectomy, possible open, possible cholangiogram. I did talk to the patient about the benefits and risks and alternate procedure. I indicated the risks may include but not limited such as bleeding, infection, injury to common bile duct, bile leak, may need endoscopic retrograde cholangiopancreatography, myocardial infarction, deep venous thrombosis, stroke and even . The patient understands. She signed informed consent. I answered all questions. DETAILS OF PROCEDURE: We brought the patient to the Operating Room and put the patient in the supine position. The patient received sequential compression devices on bilateral legs to prevent deep venous thrombosis. Also, the patient received 400 mg Cipro for I.V. prophylactic antibiotic. The patient received general anesthesia without difficulty. The abdomen was prepped and draped in routine sterile fashion. After the timeout, I injected local anesthesia by using 1% lidocaine mixed with 0.5% Marcaine just above umbilicus. I made a small incision just above umbilical, opened fascia and opened peritoneum under direct vision, put a Emma trocar in, connected to CO2 to create pneumoperitoneum, flow rate at 6 liters per minute, pressure not more than 14 mmHg. Once we got a nice pneumoperitoneum, we put a camera in, looked around the abdomen which showed no more findings on the liver. However, the gallbladder showing significant inflammation on the gallbladder wall, confirmed diagnosis of acute cholecystitis. Then, we put another two 5 mm trocar on the right upper quadrant, one 12 mm trocar on the epigastric area. Once all trocars in, we put a grasper in to hold the base of the gallbladder, put direction to the diaphragm, another grasper to hold the pouch of gallbladder, put latter to expose the triangle of Calot, however, based on the significant inflammation on the gallbladder, also gallbladder with significant dilatation, at this moment, we decided to use the top-down technique to take down gallbladder. Then, I used Endo-SEAN stapler for transection on the middle of the gallbladder and then once we removed most of the gallbladder, we will be able to see the cholelithiasis dissection and then I used the harmonic to open the remainder gallbladder cavity and we used normal saline flush in all of the remainder small stone and suctioned all the small stones with no stone left behind. Then, I used the Endoloop to close the cystic duct. Then, we used the harmonic to take down the remainder of the piece of gallbladder. Then, we used catch bag to remove two pieces of the gallbladder. Then, we reinserted Emma trocar and connected to CO2 to create pneumoperitoneum and looked around the liver. No bile leak and we made sure to remove all of the small stone suctioned out. Hemostasis was obtained. I decided to put one 10 mm TRAVIS drainage in and used a 2-0 nylon fix the TRAVIS on the skin and then I removed all trocar under direct vision. No active bleeding from the trocar sites. Pneumoperitoneum was released. I closed the umbilical incision, fascial layer by using #1 Vicryl [id number] x2, closed subcutaneous layer by using 2-0 Vicryl interrupted and closed skin by using 4-0 Vicryl continuous running, closed another two 5 mm trocar site skin only by using 4-0 Vicryl then closed the epigastric incision, fascial layer by using #1 Vicryl [id number] x2, closed subcutaneous layer by using 2-0 Vicryl interrupted and closed skin by using 4-0 Vicryl interrupted. Then, we put the dressing on. The patient tolerated the procedure well. All the instrument, needle and sponge count were correct x2 at the end the case. The patient transferred to Recovery Room in a stable condition. The specimen sent to Pathology. After procedure, I did talk to the patient and family member about the Operating Room finding and procedure we did. He understood it. I attest to the content of the Intraoperative Record and any orders documented therein. Any exception s are noted below.
[2018-11-02] MEDS: metroNIDAZOLE 500 MG/100 ML BAG IV SCH ×2 (04:45→12:05)
[2018-11-02] MEDS: CIPROFLOXACIN 400 MG/200 ML BAG IV SCH (04:46)
[2018-11-02] MEDS ORDERED: CIPROFLOXACIN 400 MG/200 ML BAG IV SCH (06:00)
[2018-11-02] MEDS: LEVOTHYROXINE SODIUM 150 MCG TABLET PO SCH (06:45)
[2018-11-02 08:04] LABS: Hematocrit (blood only) 38.6 % (37-47); Hemoglobin 13.3 g/dL (12.0-16.0); Mean Corpuscular Hgb Conc 34.5 g/dL (32-36); Mean Corpuscular Volume 84.1 fL (80-100); Mean Platelet Volume 9.7 fL (7.4-10.4); Platelet Count 296 K/uL (130-400); RDW Coefficient of Variation 13.6 % (11.5-14.5); RDW Standard Deviation 41.4 fL (36.4-46.3); Red Blood Count 4.59 M/uL (4.2-5.4); White Blood Count 8.21 K/uL (4.8-10.8)
[2018-11-02 08:29] LABS: BUN Creatinine Ratio 11.4 (10-20); Calcium 8.6 mg/dl (8.5-10.1); Creatinine Clr Calc Pharmacy 94.1 ml/min; Est GFR (African American) 101.5; Est GFR (Non-African American) 87.5; Potassium 3.7 mmol/L (3.5-5.1)
--- NOTE | 2018-11-02 08:41 | Anesthesiology Progress Note ---
Date of Service November 02, 2018 Anesthesia Post Procedure Vital Signs Vital Signs: Temp Pulse Pulse Pulse Pulse Resp BP 11/02/18 07:55 36.9 C 68 16 137/81 11/02/18 03:51 36.9 C 82 16 148/78 H 11/01/18 23:21 36.8 C 82 14 138/77 11/01/18 23:20 36.8 C 11/01/18 19:44 36.7 C 81 16 11/01/18 18:29 36.3 C L 80 16 11/01/18 17:33 36.5 C 77 16 11/01/18 17:05 36.5 C 77 16 11/01/18 16:30 36.7 C 83 16 11/01/18 16:15 36.3 C L 76 13 11/01/18 16:05 79 15 11/01/18 15:55 83 14 11/01/18 15:45 76 14 11/01/18 15:37 36.2 C L 85 14 11/01/18 12:37 36.7 C 65 20 BP Pulse Ox 11/02/18 07:55 95 11/02/18 03:51 92 11/01/18 23:21 92 11/01/18 23:20 11/01/18 19:44 122/76 93 11/01/18 18:29 137/82 94 11/01/18 17:33 137/78 95 11/01/18 17:05 138/78 95 11/01/18 16:30 151/84 H 95 11/01/18 16:15 152/85 H 93 11/01/18 16:05 156/77 H 93 11/01/18 15:55 150/96 H 96 11/01/18 15:45 162/94 H 94 11/01/18 15:37 171/85 H 90 11/01/18 12:37 112/78 97 Notes Mental Status: alert / awake / arousable and participated in evaluation Nausea / Vomiting: adequately controlled Pain: adequately controlled Airway Patency, RR, SpO2: stable & adequate BP & HR: stable & adequate Hydration State: stable & adequate
[2018-11-02] MEDS: SERTRALINE HCL 100 MG TABLET PO SCH (08:43)
[2018-11-02] MEDS: INSULIN ASPART 100 UNITS/ML 3 ML PEN SC SCH ×2 (08:48→13:43)
[2018-11-02] MEDS ORDERED: ASPIRIN 81 MG ECTAB PO SCH (09:00)
[2018-11-02] MEDS ORDERED: ENOXAPARIN INJ 40 MG/0.4 ML SYR SQ SCH (09:00)
[2018-11-02] MEDS ORDERED: PRAVASTATIN SOD 40 MG TAB PO SCH (09:00)
[2018-11-02] MEDS ORDERED: INSULIN DEGLUDEC 70 UNIT SQ SCH (09:00)
[2018-11-02] MEDS ORDERED: OMEGA-3 ACID ETHYL ESTERS 1 GM CAPSULE PO SCH (09:00)
[2018-11-02] MEDS ORDERED: CHOLECALCIFEROL 1,000 UNITS TAB PO SCH (09:00)
[2018-11-02] MEDS ORDERED: LISINOPRIL 40 MG TAB PO SCH (09:00)
[2018-11-02] MEDS ORDERED: MULTIVITAMIN TAB PO SCH (09:00)
[2018-11-02] MEDS ORDERED: INSULIN GLARGINE SOLOSTAR 100 UNITS/ML 3 ML PEN SC STA (09:24)
[2018-11-02] MEDS ORDERED: ACETAMINOPHEN 325 MG TAB PO PRN (09:40)
[2018-11-02] MEDS ORDERED: DOCUSATE SODIUM 100 MG CAP PO SCH (09:45)
[2018-11-02] MEDS ORDERED: OMEGA-3 (PURIFIED FISH OIL) 1 GM CAP PO SCH (09:45)
--- NOTE | 2018-11-02 09:56 | Surgery Progress Note ---
Date of Service November 02, 2018 Assessment & Plan (1) Choledocholithiasis: POD # 4 s/p ERCP and POD # 1 s/p lap cholecystectomy -vitals stable, afebrile - pain controlled, no n/v - mariusz with serosanguineous output 70 cc - no chest pain/sob - abdomen distended, no flatus or BM Plan: Continue Tramadol prn pain, add PO Tylenol prn Continue full liquid diet Add colace bid Continue IV abx ambulate hallway continue mairusz drain , will determine if will be discharged with drain saw pt with Dr. Barrow Patient okay for discharge from surgical standpoint Discharge home with drain, mariusz drain teaching prior f/u surgical office Thursday, call to make an appointment discharge instructions reviewed with patient Work excuse given for pt and Subjective some soreness at incision sites, last took Tramadol at 5 pm yesterday, would prefer not to take Morphine No nausea or vomiting tolerating full liquids feels bloated no flatus or bowel movement ambulating hallway, no sob or chest pain Physical Exam Vital Signs (Past 24 Hours): Last Vital Signs Temp 36.9 C 11/02/18 07:55 Pulse 68 11/02/18 07:55 Resp 16 11/02/18 07:55 BP 137/81 11/02/18 07:55 Pulse Ox 95 11/02/18 07:55 Constitutional: WD/WN, vitals as above no acute distress and not ill appearing Respiratory: normal respiratory effort, lungs clear to auscultation no respiratory distress Cardiovascular: RRR, no murmur, no edema Gastrointestinal (Abdomen): Inspection/Auscultation: + abdomen distended and + abdominal surgical drain present (serosanguineous output); + abnormal bowel sounds Percussion/Palpation: + abdomen tender (at incision sites, appropriate post op) and abdomen soft; no guarding and abdomen not rigid Skin: no rashes, warm and dry + incision (Covered with dressings clean and dry, mild spotting) Psychiatric: A+Ox3, euthymic affect Results & Data Laboratory Results 11/02/18 11/02/18 11/02/18 Range/Units 07:52 07:34 07:34 WBC 8.21 (4.8-10.8) K/uL RBC 4.59 (4.2-5.4) M/uL Hgb 13.3 (12.0-16.0) g/dL Hct 38.6 (37-47) % MCV 84.1 (80-100) fL MCH 29.0 (25-34) pg MCHC 34.5 (32-36) g/dL RDW Std Deviation 41.4 (36.4-46.3) fL RDW Coeff of Didier 13.6 (11.5-14.5) % Plt Count 296 (130-400) K/uL MPV 9.7 (7.4-10.4) fL Sodium 136 (136-145) mmol/L Potassium 3.7 D (3.5-5.1) mmol/L Chloride 103 (98-107) mmol/L Carbon Dioxide 27 (21-32) mmol/L Anion Gap 6.0 (3-11) BUN 9 (7-18) mg/dl Creatinine 0.77 (0.6-1.2) mg/dl Est Cr Clr Drug Dosing 94.1 ml/min Est GFR ( Amer) 101.5 Est GFR (Non-Af Amer) 87.5 BUN/Creatinine Ratio 11.4 (10-20) Glucose 229 H (70-99) mg/dl POC Glucose 205 H (70-99) Calcium 8.6 (8.5-10.1) mg/dl TSH 1.620 (0.300-4.500) uIu/ml 11/01/18 11/01/18 11/01/18 Range/Units 20:33 16:30 15:38 WBC (4.8-10.8) K/uL RBC (4.2-5.4) M/uL Hgb (12.0-16.0) g/dL Hct (37-47) % MCV (80-100) fL MCH (25-34) pg MCHC (32-36) g/dL RDW Std Deviation (36.4-46.3) fL RDW Coeff of Didier (11.5-14.5) % Plt Count (130-400) K/uL MPV (7.4-10.4) fL Sodium (136-145) mmol/L Potassium (3.5-5.1) mmol/L Chloride (98-107) mmol/L Carbon Dioxide (21-32) mmol/L Anion Gap (3-11) BUN (7-18) mg/dl Creatinine (0.6-1.2) mg/dl Est Cr Clr Drug Dosing ml/min Est GFR ( Amer) Est GFR (Non-Af Amer) BUN/Creatinine Ratio (10-20) Glucose (70-99) mg/dl POC Glucose 231 H 151 H 146 H (70-99) Calcium (8.5-10.1) mg/dl TSH (0.300-4.500) uIu/ml 11/01/18 Range/Units 12:07 WBC (4.8-10.8) K/uL RBC (4.2-5.4) M/uL Hgb (12.0-16.0) g/dL Hct (37-47) % MCV (80-100) fL MCH (25-34) pg MCHC (32-36) g/dL RDW Std Deviation (36.4-46.3) fL RDW Coeff of Didier (11.5-14.5) % Plt Count (130-400) K/uL MPV (7.4-10.4) fL Sodium (136-145) mmol/L Potassium (3.5-5.1) mmol/L Chloride (98-107) mmol/L Carbon Dioxide (21-32) mmol/L Anion Gap (3-11) BUN (7-18) mg/dl Creatinine (0.6-1.2) mg/dl Est Cr Clr Drug Dosing ml/min Est GFR ( Amer) Est GFR (Non-Af Amer) BUN/Creatinine Ratio (10-20) Glucose (70-99) mg/dl POC Glucose 120 H (70-99) Calcium (8.5-10.1) mg/dl TSH (0.300-4.500) uIu/ml
--- NOTE | 2018-11-02 10:19 | Discharge Summary ---
Date of Service November 02, 2018 Admission HPI Per Admitting Provider The patient is a 52-year-old female with a past medical history including diabetes mellitus, hypertension, hypothyroidism, hyperlipidemia and depression, who presents to the emergency department with 1 week of worsening GI symptoms of abdominal distention, and bloating, with and episode of nausea and vomiting today prior to arrival. She has not had any recent travels or sick exposures. She has not had these type of symptoms in the past. She has not eaten any new or questionable food intake. She did have the beginning of loose stools over the past 3 days. Admission Exam Per Admitting Provider The patient is awake, alert and oriented 3, well developed and well nourished, normocephalic and atraumatic, lying in bed and in no acute distress. HEENT--PERRL, EOMI, mucous membranes and oropharynx dry. Neck--supple. No JVD. No bruits. Thyroid normal, trachea midline, no adenopathy. Heart--normal S1 and S2. No murmurs, rubs or gallops. Lungs--clear bilaterally, no respiratory distress, no accessory muscle use. Abdomen--normal bowel sounds and soft. Mild epigastric right upper quadrant tenderness. Mildly distended and tympanitic. Extremities--no cyanosis or clubbing. No edema. There are good distal pulses b/l. Dermatologic--normal skin turgor, normal color, no abnormal lymph nodes, no rash. Neurologic--cranial nerves II through XII grossly intact. Rheumatologic--normal range of motion. Psychiatric--normal affect. Principal Diagnosis Choledocolithiasis, Acute Cholecystitis Discharge Exam General: Resting comfortably in no apparent distress; A&OX3 HEENT: NC/AT; PERRLA with EOMI; [place] conjunctiva, MMM. Neck: Supple and nontender Cardiac: RRR Lungs: CTA bilaterally; No rhonchi, wheezing, or rales Abdomen: 4 incision sites with dressing, no drainage noted; BS normoactive x4; nontender to light palpation. Extremities: Warm. No edema present Neuro: No focal weakness Skin: No rash Discharge Data Allergies Allergy/AdvReac Type Severity Reaction Status Date / Time clavulanic acid Allergy Mild liver Verified 10/29/18 02:04 damage Penicillins Allergy Mild liver Verified 10/29/18 02:04 damage Consultations 10/29/18 03:29 ED Decision to Admit Stat 10/29/18 06:02 Consult Case Management - Discharge Planning Routine Consult Gastroenterology Routine 10/29/18 15:50 Consult General Surgery Routine 10/31/18 14:08 Consult Cardiology Routine Procedures Performed Operation Date: 10/29/18 08:45 Actual Procedures p Endoscopic Retrograde Cholangiopancreatogram(Not Applicable) - Marcelino Evans Operation Date: 10/31/18 10:00 <No data on this case meets the specified criteria> Operation Date: 11/01/18 13:45 Actual Procedures p Laparoscopic Cholecystectomy(Not Applicable) - Tory Barrow MD Ordered Studies 10/29/18 01:27 CT abd pelvis IV con only Urgent 10/29/18 04:19 MR MRCP Urgent 10/29/18 15:00 FL ERCP biliary ductal Routine CXR 10/30 and 10/31 Hospital Course (1) Choledocholithiasis with obstruction: S/p ERCP on 10/29/18 with stone removal and biliary sphincterectomy. Status post lap laura on 11/01/18. General surgery consulted, appreciate input. Cipro/Flagyl IV ordered at discharge; pt. completed a 5 day course. PPI also ordered daily. She was stable for discharge POD#1 following lap laura. Pt. was instructed to take Tylenol for mild pain (limited dosing due to recent elevated LFTs) and Tramadol for moderate to severe pain. Will need to follow up with surgery as outpatient. (2) Abnormal liver function tests: Transaminitis at admission was likely related to CBD obstruction. LFTs trended down overall. Abdominal CT additionally showed possible fatty infiltrate - will need to discuss with PCP as an outpatient. (3) Pulmonary vascular congestion: Chest XR 10/31: pulm vascular congestion and small pleural effusions. Echo showed normal systolic function, no acute abnormalities. Pt. did receive Lasix 40 mg IV x 1 dose; further diuresis was held. Cardiology was consulted for pre- op clearance per anesthesia recs. (4) Insulin-requiring or dependent type II diabetes mellitus: Home Metformin 1000 mg BID and home Tresiba were held while inpatient. A1C was 9.4. Pharmacy consulted for glycemic management. She follows with [facility] in [place] -- will schedule a follow up appt. Home regimen was resumed at [facility] She was also educated on lifestyle choices, weight loss. (5) Hypothyroidism (acquired): Continued Levothyroxine 150 mcg and 200 mcg on Sundays. TSH was 1.62 during this admission. (6) Hypertension: Continued Lisinopril 40 mg daily. (7) Hyperlipidemia: Continued Pravastatin 40 mg daily and Aspirin 81 mg daily. (8) Depression: Continued Sertraline 100 mg daily. (9) UTI (urinary tract infection): Urine culture was positive for E. coli. Pt. completed a 5 day course of Cipro per sensitivites. (10) Hypokalemia: Replaced as needed. (11) DVT prophylaxis: Lovenox. Pt. was stable for discharge to home on 11/02/18. Will f/u with surgery as an outpatient. Total Time Total Time Spent Total Time Spent (In Minutes): >30 minutes Total Time Includes: Examination of the Patient, Discharge Planning, Medication Reconciliation, Communication With Other Providers and Other Discharge Plan Discharge Items Patient Disposition: Home - Self-Care Reason For Visit: CHOLEDOCHOLITHIASIS Discharge Diagnosis: Choledocholithiasis, Acute Cholecystitis Condition: Good Discharge Goals: Decrease discomfort, Improve disease control, Improve function, Increase independence, Improve nutritional status and Prevent disease Activity: As commented below Exercise/Sports: Wait until after follow-up appointment Non-emergency contact: Primary Care Provider and Surgeon Call non-emergency contact if: you have any medication questions, your symptoms worsen, your pain is not controlled, your pain is worsening, you have a fever and your wound has increased drainage Follow-up/Referrals: Magnus Donald [Primary Care Provider] - 11/09/18 8:50 am (Please, follow up with Dr. Donald on ThursdayNovember 09 at 8:50 am. *If you need to change this appointment, call the office at [phone].) Tory Barrow MD [Physician] - 11/08/18 11:00 am (Please, follow up with Dr. Barrow on ThursdayNovember 08 at 11:00 am. *This office is located in [facility]. The address is [address] [place] [address] in [place]. The phone number is [phone].) Diet: Carb Consistent or DM2 and Full liquid Diet Comment: Slowly advance diet as tolerated. Addtl Provider Instructions: 1. Choledocolithiasis/Cholecystitis * An ERCP with stone removal and laparoscopic cholecystectomy was completed during this admission. * Please avoid large doses of Tylenol due to recent elevated liver function tests. * Please take Tramadol 50 mg every 8 hours for moderate to severe pain. * Please take Colace 100 mg twice daily scheduled with Miralax as needed. * Continue a full liquid diet this evening; advance diet slowly as tolerated. * Please follow up with surgery as an outpatient on Thursday for possible TRAVIS drain removal 2. Diabetes Mellitus * Please resume home insulin regimen. * Monitor blood glucose levels with meals and at bedtime. * Please follow up with endocrinology to discuss blood glucose control. 3. Please call your family doctor or go to the ER if you develop the following: * Chest pain or shortness of breath. * Nausea/vomiting or severe watery diarrhea. Surgical Discharge instructions: No heavy lifting over 25 pounds for 4 weeks No strenuous activity until cleared by surgeon No submerging incisions underwater for 2 weeks or until fully healed (no swimming, bathing, or hot tubs) No driving while taking pain medication or until you are pain free You may shower, gently clean incisions with soap and water and pat dry. Leave steri strips on incisions for 7 days and then remove. Sponge bath around drain. Record drain output daily and the color. Keep record and bring to office with you. Take Tramadol and extra strength Tylenol as instructed above for pain Walking and light activity is encouraged daily to prevent blood clots from forming in your legs. To avoid constipation: drink plenty of fluids daily, avoid foods that constipate, and daily walking. May take OTC stool softener(Colace) daily or twice a day while taking pain medication. If those measures do not work, you may take Miralax or Milk of Magnesia. Call surgical office at [phone] to make an appointment for Thursday (11/08/18) for drain removal and follow-up. Prescriptions: New ondansetron HCl [Zofran] 4 mg tablet 4 mg PO Q8H PRN (Reason: nausea and vomiting) Qty: 10 RF: 0 tramadol 50 mg tablet 50 mg PO Q8H PRN (Reason: pain, moderate) Qty: 9 RF: 0 Continued [place]-3 350 mg-235 mg- 90 mg-597 mg Capsule,Delayed Release(Dr/Ec) 1 cap PO DAILY RF: 0 levothyroxine 150 mcg Tablet 150 mcg PO 6XWK RF: 0 levothyroxine 200 mcg Tablet 200 mcg PO DIRECTED RF: 0 cholecalciferol (vitamin D3) [Vitamin D3] 2,000 unit Tablet 2,000 unit PO DAILY RF: 0 aspirin 81 mg Tablet,Delayed Release (Dr/Ec) 81 mg PO DAILY RF: 0 lisinopril 40 mg Tablet 40 mg PO DAILY RF: 0 pravastatin [Pravachol] 40 mg Tablet 40 mg PO DAILY RF: 0 sertraline 100 mg Tablet 100 mg PO DAILY RF: 0 Novolog Flexpen U-100 Insulin 100 unit/mL Insulin Pen SUBCUT DIRECTED RF: 0 metformin 1,000 mg Tablet 1,000 mg PO BID RF: 0 multivitamin Tablet 1 tab PO DAILY RF: 0 Tresiba FlexTouch U-100 100 unit/mL (3 mL) Insulin Pen 70 unit SUBCUT DAILY RF: 0 Stand-Alone Forms: [facility], [facility], Work/School Release (Inpt) Discharge Orders: Discharge Order (Routine); Ordered 11/02/18 Ordered By: Carito Garcia Admission Data Admit Date/Time: 10/29/18 04:36 Attending Provider: Warren Barragan Admit Provider: Leon Canas Primary Care Provider: Magnus Donald Other Providers: Leon Canas ; Marcelino Evans ; Orville Chaparro ; Zana Horton Service: Surgical Services Other Interventions: Discharge Summary Assessment (RN) Last Done: 11/02/18 13:23 Pending Studies at Discharge: Yes (Gallbladder pathology, will be reviewed at follow-up visit) DC Date/Time DO NOT enter until pt leaves facility: 11/02/18 16:56 Supervising Physician Co-Signing Physician Notes Attending Attestation - Pt seen/examined, chart reviewed, care plan d/w PA Carito Garcia. I agree w/ the mcg[place] components of her discharge documentation. 52yo female with T2DM who presented with choledocholithiasis, abnormal LFTs, and acute cholecystitis. She never had signs of cholangitis. Treated with IV antibiotics, ERCP by Dr. Marcelino Nathan with CBD stone extraction, and lap laura by Dr. Corin Barrow. Post-op was resumed on diet and tolerated such. TRAVIS Drain was left in place at time of discharge. Patient did not pass flatus or stool prior to discharge home; surgical team aware of such. Bowel regimen discussed with patient in detail prior to discharge. Discharge exam: gen - NAD eyes - no icterus mouth - MMM heart - RRR, s1, s2, no murmur lungs - CTA b/l abd - soft, mildly distended, BS+ but decreased, no HSM, TRAVIS drain in place skin - dressings in place on abdominal wall - clean/dry ext - no edema close outpatient f/u with gen surg will be needed. Warren Barragan MD
--- NOTE | 2018-11-02 10:24 | Pharmacy Report ---
Pharmacy Glycemic Short Note 2 - Date of Service November 02, 2018 - Glycemic Short BSG Results (Last 24 hours): 11/01/18 11/01/18 11/01/18 12:07 15:38 16:30 Glucose POC Glucose 120 H 146 H 151 H 11/01/18 11/02/18 11/02/18 20:33 07:34 07:52 Glucose 229 H POC Glucose 231 H 205 H ASSESSMENT: * Hyperglycemic FBS this AM. Hyperglycemia likely due to basal deficiency. She typically requires 70 units of Tresiba HS but has been getting half of that over the preceding 2 days, due to NPO status and fluctuating insulin requirements. We will provide 15 units of lantus this AM and maintain the lantus scale currently in place. * Will increase 11/03/18's lantus scale to provide more HS lantus: <180mg/dL give 40 units, >/=180mg/dL give 50 units PLAN FOR INPATIENT GLYCEMIC CONTROL: * Hold outpatient oral diabetes medications * Basal insulin * see above * Bolus insulin * NovoLog per scale ACHS or Q6hrs while NPO * Goal Range: Low 110 mg/dL - High 140 mg/dL * Correction Factor: 25 mg/dL/unit * Nutritional / Prandial insulin per carb ratio of 1 unit per 5 grams CHO consumed
[2018-11-02] MEDS ORDERED: INSULIN GLARGINE SOLOSTAR 100 UNITS/ML 3 ML PEN SC ONE (10:30)
[2018-11-02] MEDS: PANTOprazole 40 MG in SYRINGE 0 ML IV SCH (11:27)
[2018-11-03] MEDS ORDERED: INSULIN GLARGINE SOLOSTAR 100 UNITS/ML 3 ML PEN SC SCH (21:00)
== END 2018-11-02 16:56 | disposition home or self-care (01) | DRG 418 ==
LOC: ED 01:03 → 3N 04:36 → SUATTDRO 04:36 → 3N 05:09

== ENCOUNTER 2023-05-09 19:56 | Observation (INO) ==
--- NOTE | 2023-05-09 20:18 | Emergency Department Note ---
Impression & Plan Accidental overdose of insulin ADMIT ED Provider Note HPI: The patient is a 57-year-old female with history of insulin-dependent diabetes, presents the emergency department over concern for insulin overdose. Patient states that she took a dose of her Tresiba as scheduled this morning. Patient states she takes 64 units every morning at 9 AM. Patient states that she accidentally administered a second dose of 64 units this evening at about 7:15 PM, she contacted poison control and was advised to come to the emergency department for assessment. On arrival here to the ED the patient is in no acute distress, her presenting blood sugar is 324, patient denies any other complaints on arrival. ROS: - Per HPI *Outpatient medications and allergy history reviewed. *Pertinent external medical records reviewed. PE: General: Alert HEENT: Normocephalic, trachea midline Eyes: Extraocular eye movement is intact, no scleral erythema Pulmonary: Clear to auscultation bilaterally, no wheezing Cardio: Regular rate and rhythm GI: Abdomen is soft to palpation : No suprapubic tenderness MSK: No evidence of trauma or malformation of the extremities, no edema Skin: No evidence of rash Neuro: Alert, no focal deficits Psychiatric: Cooperative property assessment monitor: (As interpreted by myself): - An order was placed for continuous cardiac monitoring - Patient was noted to be in sinus rhythm with a rate of 70 Medical Decision Making: Patient appears well on arrival, case was discussed with poison control who is familiar with the patient from phone conversation earlier today. They recommend minimum of 12-hour observation. Recommend blood glucose checks every 2 hours while awake and every 1 hour while sleeping. I discussed this with the patient and she is in agreement for observation. [facility] hospitalist service was consulted for admission, lab work was sent, patient is noted to be hyperglycemic in the 300s on arrival. She otherwise appears well. Patient is in agreement for observation and she was placed for observation in stable condition. [facility] service was consulted, Dr. Canas aware. Consultants: - Poison Control Center - Hospitalist, Dr. Canas Disposition discussion held by myself with: Patient and at bedside Diagnosis: 1. Accidental insulin overdose, acute 2. Hyperglycemia in patient with known diabetes, without DKA, acute Disposition: Admission Ramirez Haskins DO Emergency Medicine Past Med/Surg History Medical History (Updated 05/09/23 @ 23:21 by Ramirez Haskins DO) Choledocholithiasis Asymptomatic now. Ok to proceed with choledocolithiasis. Note HB A1C 9.4. This may play into surgical plans; per surgery team. No additional reccs for now. Hyperlipemia Hypertension Hypothyroid Obesity Type 2 diabetes mellitus insulin dependent Surgical History History of ERCP Social History Smoking Status: Never smoker Hx Alcohol Use: Yes Hx Substance Use: No Preferred Language: Czech Communication Ability: Effective Video Rental Clerk Required: No Beliefs That Will Affect Care: None marital status: Current Living Situation: Spouse Current Living Situation Comment: x2 sons & cats Feels Safe at Home: Yes Assistive Devices: None Allergies Allergies Allergy/AdvReac Type Severity Reaction Status Date / Time clavulanic acid Allergy Mild liver Verified 10/29/18 02:04 damage Penicillins Allergy Mild liver Verified 10/29/18 02:04 damage Home Meds Home Medications Medication Instructions Recorded Confirmed aspirin 81 mg tablet,delayed 81 mg PO DAILY 10/29/18 05/09/23 release cholecalciferol (vitamin D3) 50 2,000 unit PO DAILY 10/29/18 05/09/23 mcg (2,000 unit) tablet (Vitamin D3) insulin aspart U-100 100 unit/mL 0 unit subcut DIRECTED 10/29/18 05/09/23 (3 mL) subcutaneous pen (Novolog FlexPen U-100 Insulin aspart) lisinopril 40 mg tablet 40 mg PO DAILY 10/29/18 05/09/23 multivitamin 1 tab PO DAILY 10/29/18 05/09/23 omega 3 350 mg-dha 235 mg-epa 90 1 cap PO DAILY 10/29/18 05/09/23 mg-fish oil 597 mg capsule,delay rel (Carrier-3) sertraline 100 mg tablet 100 mg PO DAILY 10/29/18 05/09/23 insulin degludec 100 unit/mL (3 64 unit subcut DAILY 10/30/18 05/09/23 mL) subcutaneous pen (Tresiba FlexTouch U-100 insulin) levothyroxine 150 mcg tablet 150 mcg PO DAILYBB 05/09/23 05/09/23 (Synthroid) metformin 500 mg tablet,extended 2,000 mg PO DAILY 05/09/23 05/09/23 release 24 hr pravastatin 40 mg tablet 40 mg PO HS 05/09/23 05/09/23 Results & Data (ED) Vital Signs Vital Signs - 24 hr 05/09/23 19:58 05/09/23 20:34 05/09/23 20:34 Temperature 36.7 C Temperature Source Temporal Artery Scan Pulse Rate 81 Pulse Rate [Apical] 76 Pulse Rhythm Pulse Rhythm [Apical] Regular Pulse Strength [Apical] Normal Respiratory Rate 17 17 Respiratory Effort / Characteristics Non-Labored Spontaneous Non-Labored Respiratory Depth Normal Normal Respiratory Pattern Regular Blood Pressure 183/85 H Blood Pressure [Right Arm] 143/79 H Blood Pressure Mean 117 Blood Pressure Mean [Right Arm] 100 Pulse Oximetry 94 94 Oxygen Delivery Method Room Air Room Air Room Air Sepsis Recent Fever Within 48 Hours No Sepsis New/Unexplained Change in Mental Status No Sepsis Action Taken by Nursing No Action Required 05/09/23 20:34 05/09/23 21:10 05/09/23 22:00 Temperature Temperature Source Pulse Rate 76 Pulse Rate [Apical] 73 Pulse Rhythm Regular Pulse Rhythm [Apical] Pulse Strength [Apical] Respiratory Rate 18 18 Respiratory Effort / Characteristics Respiratory Depth Respiratory Pattern Blood Pressure Blood Pressure [Right Arm] 126/77 Blood Pressure Mean Blood Pressure Mean [Right Arm] 93 Pulse Oximetry 93 94 Oxygen Delivery Method Room Air Room Air Sepsis Recent Fever Within 48 Hours Sepsis New/Unexplained Change in Mental Status Sepsis Action Taken by Nursing Laboratory Data 05/09/23 21:02 05/09/23 21:02 Lab Results 05/09/23 05/09/23 05/09/23 Range/Units 20:00 20:59 21:02 WBC 6.66 (4.8-10.8) K/ul RBC 4.59 (4.20-5.40) M/uL Hgb 13.7 (12.0-16.0) g/dl Hct 39.3 (37.0-47.0) % MCV 85.6 (80.0-100.0) fL MCH 29.8 (25.0-34.0) pg MCHC 34.9 (32.0-36.0) g/dL RDW Std Deviation 38.9 (36.4-46.3) fL RDW Coeff of Didier 12.5 (11.5-14.5) % Plt Count 249 (130-400) K/uL MPV 10.5 (9.4-12.4) fL Immature Gran % (Auto) 0.5 % Neut % (Auto) 59.2 % Lymph % (Auto) 25.2 % [place] % (Auto) 11.0 % Eos % (Auto) 3.3 % Baso % (Auto) 0.8 % Neut # (Auto) 3.95 (1.40-6.50) K/uL Lymph # (Auto) 1.68 (1.20-3.40) K/uL [place] # (Auto) 0.73 H (0.11-0.59) K/uL Eos # (Auto) 0.22 (0.00-0.50) K/uL Baso # (Auto) 0.05 (0.00-0.20) K/uL Immature Gran # (Auto) 0.03 (0.01-0.20) K/uL Sodium (136-145) mmol/L Potassium (3.5-5.1) mmol/L Chloride (98-107) mmol/L Carbon Dioxide (21-32) mmol/L Anion Gap (3-11) BUN (6-23) mg/dl Creatinine (0.6-1.2) mg/dl Est Cr Clr Drug Dosing ml/min Est GFR ( Amer) ml/min Est GFR (Non-Af Amer) ml/min BUN/Creatinine Ratio (10-20) Glucose (70-99(Fasting)) mg/dl POC Glucose 324 H* 408 H* (70-99) mg/dl Calcium (8.6-10.3) mg/dl Total Bilirubin (0.2-1.0) mg/dl AST (13-39) U/L ALT (7-52) U/L Alkaline Phosphatase (34-104) U/L Total Protein (6.0-8.3) gm/dl Albumin (3.4-5.0) gm/dl Globulin (2.5-4.0) gm/dl Albumin/Globulin Ratio (0.9-2) 05/09/23 05/09/23 05/09/23 Range/Units 21:02 21:54 23:02 WBC (4.8-10.8) K/ul RBC (4.20-5.40) M/uL Hgb (12.0-16.0) g/dl Hct (37.0-47.0) % MCV (80.0-100.0) fL MCH (25.0-34.0) pg MCHC (32.0-36.0) g/dL RDW Std Deviation (36.4-46.3) fL RDW Coeff of [place]ier (11.5-14.5) % Plt Count (130-400) K/uL MPV (9.4-12.4) fL Immature Gran % (Auto) % Neut % (Auto) % Lymph % (Auto) % [place] % (Auto) % Eos % (Auto) % Baso % (Auto) % Neut # (Auto) (1.40-6.50) K/uL Lymph # (Auto) (1.20-3.40) K/uL [place] # (Auto) (0.11-0.59) K/uL Eos # (Auto) (0.00-0.50) K/uL Baso # (Auto) (0.00-0.20) K/uL Immature Gran # (Auto) (0.01-0.20) K/uL Sodium 137 (136-145) mmol/L Potassium 3.8 (3.5-5.1) mmol/L Chloride 106 (98-107) mmol/L Carbon Dioxide 23 (21-32) mmol/L Anion Gap 8 (3-11) BUN 19 (6-23) mg/dl Creatinine 0.61 (0.6-1.2) mg/dl Est Cr Clr Drug Dosing 116.5 ml/min Est GFR ( Amer) 115.0 ml/min Est GFR (Non-Af Amer) 99.2 ml/min BUN/Creatinine Ratio 31.1 H (10-20) Glucose 429 H* (70-99(Fasting)) mg/dl POC Glucose 393 H* 379 H* (70-99) mg/dl Calcium 8.6 (8.6-10.3) mg/dl Total Bilirubin 0.4 (0.2-1.0) mg/dl AST 21 (13-39) U/L ALT 25 (7-52) U/L Alkaline Phosphatase 98 (34-104) U/L Total Protein 6.2 (6.0-8.3) gm/dl Albumin 3.6 (3.4-5.0) gm/dl Globulin 2.6 (2.5-4.0) gm/dl Albumin/Globulin Ratio 1.4 (0.9-2) Discharge Plan Visit Data Chief Complaint: Overdose (Accidental) Stated Complaint: TOOK DOUBLE DOSE OF LONG-ACTING INSULIN ED Provider: Ramirez Haskins Discharge Problem: Accidental overdose of insulin Forms Stand Alone Forms: My [facility] [place] Prescriptions Prescriptions: No Action Carrier-3 350 mg-235 mg- 90 mg-597 mg Capsule,Delayed Release(Dr/Ec) 1 cap PO DAILY cholecalciferol (vitamin D3) [Vitamin D3] 2,000 unit Tablet 2,000 unit PO DAILY aspirin 81 mg Tablet,Delayed Release (Dr/Ec) 81 mg PO DAILY lisinopril 40 mg Tablet 40 mg PO DAILY sertraline 100 mg Tablet 100 mg PO DAILY insulin aspart U-100 [Novolog FlexPen U-100 Insulin] 100 unit/mL Insulin Pen 0 unit SUBCUT DIRECTED Rx Instructions: CF: 25 mg/dL/unit for BSG above 150 CR: 1 unit per 5 gm carbs multivitamin Tablet 1 tab PO DAILY insulin degludec [Tresiba FlexTouch U-100] 100 unit/mL (3 mL) Insulin Pen 64 unit SUBCUT DAILY pravastatin 40 mg tablet 40 mg PO HS levothyroxine [Synthroid] 150 mcg tablet 150 mcg PO DAILYBB metformin 500 mg tablet extended release 24 hr 2,000 mg PO DAILY Referrals Referrals: Magnus Donald MD [Primary Care Provider] -
[2023-05-09 21:27] LABS: Albumin Level 3.6 gm/dl (3.4-5.0); Bilirubin,Total 0.4 mg/dl (0.2-1.0); Calcium 8.6 mg/dl (8.6-10.3); Potassium 3.8 mmol/L (3.5-5.1)
[2023-05-09 21:36] LABS: Albumin Globulin Ratio 1.4 (0.9-2); BUN Creatinine Ratio 31.1 (10-20); Creatinine Clr Calc Pharmacy 116.5 ml/min; Est GFR (Non-African American) 99.2 ml/min; Globulin 2.6 gm/dl (2.5-4.0); Total Protein 6.2 gm/dl (6.0-8.3)
[2023-05-09 21:54] LABS: Basophils # (auto) 0.05 K/uL (0.00-0.20); Basophils % (auto) 0.8 %; Eosinophils # (auto) 0.22 K/uL (0.00-0.50); Eosinophils % (auto) 3.3 %; Hematocrit (blood only) 39.3 % (37.0-47.0); Hemoglobin 13.7 g/dl (12.0-16.0); Immature Granulocytes # (auto) 0.03 K/uL (0.01-0.20); Immature Granulocytes % (auto) 0.5 %; Lymphocytes # (auto) 1.68 K/uL (1.20-3.40); Lymphocytes % (auto) 25.2 %; Mean Corpuscular Hemoglobin 29.8 pg (25.0-34.0); Mean Corpuscular Hgb Conc 34.9 g/dL (32.0-36.0); Mean Corpuscular Volume 85.6 fL (80.0-100.0); Mean Platelet Volume 10.5 fL (9.4-12.4); Monocytes # (auto) 0.73 K/uL (0.11-0.59); Neutrophils # (auto) 3.95 K/uL (1.40-6.50); Neutrophils % (auto) 59.2 %; Platelet Count 249 K/uL (130-400); RDW Coefficient of Variation 12.5 % (11.5-14.5); RDW Standard Deviation 38.9 fL (36.4-46.3); Red Blood Count 4.59 M/uL (4.20-5.40); White Blood Count 6.66 K/ul (4.8-10.8)
--- NOTE | 2023-05-09 22:20 | History & Physical Report ---
Date of Service May 09, 2023 Assessment & Plan (1) Hyperglycemia: Plan: -Noted hyperglycemia on admission to 300s without any acid/base or electrolyte abnormality -Hyperglycemia noted about 2h post-prandially following consumption of carbohydrate-heavy meal + sweetened beverage -No acute intervention to be done at this time, encouraged pt to hydrate orally -Expect improvement as long-acting insulin effect grows -BSG q4h (2) Insulin overdose: Plan: -Insulin overdose with accidental Tresiba 64u dose in evening- pt's total insulin dose on 05/09 around 150u -As above, continue monitoring BSGs -We will defer any further basal/bolus coverage for now -SSI coverage ordered for AM meal (3) Type 2 diabetes mellitus: Plan: -IDDM2 on Tresiba 64u daily w/ mealtime insulin -Last known A1C 9.4% in 2019, repeat added for AM -Likely available in [facility] records -Metformin on outpatient list but no longer an active medication for patient -See above plan (4) Hypertension: Plan: -BP stable -Continue lisinopril (5) Hypothyroid: Plan: -Continue levothyroxine (6) Hyperlipemia: Plan: -Continue pravastatin (7) Depression: Plan: -Continue sertraline Plan FENGI: DM2 Code status: Full DVT prophylaxis: Ambulation Isolation: None Disposition: Medical/surgical History of Present Illness Chief Complaint: Hyperglycemia Primary Care Provider: Magnus Donald MD 57 yo F with PMH IDDM2, HTN, HLD, hypothyroidism, depression presenting with hyperglycemia. Pt normally takes 64u Tresiba daily at 9 AM along with 1u/3g carb mealtime insulin. This AM she took 64u Tresiba, estimates about 14u at breakfast + 10u at lunch. During evening as she was preparing to take mealtime dinner dose, pt accidentally took 64u Tresiba dose instead at 7:15 PM and realized this shortly afterward. She did not take any further mealtime insulin. Dinner consisted of seafood pasta. Pt tried calling pharmacy and PCP office for assistance and was directed to call poison control who advised she come to ER for glycemic monitoring. She was also advised to consume a sugary beverage, so she had sweetened iced tea. Pt arrived to ER hemodynamically stable around 9 PM. Initial evaluation without any significant lab abnormalities other than BSG- elevated to 324 on admission, BSGs have fluctuated in ER in 300s. No ER interventions done. At present, pt reports no symptoms. She did not have any acute hyper/hypoglycemic symptoms today. Allergies Allergy/AdvReac Type Severity Reaction Status Date / Time clavulanic acid Allergy Mild liver Verified 10/29/18 02:04 damage Penicillins Allergy Mild liver Verified 10/29/18 02:04 damage Home Medications Medication Instructions Recorded Confirmed Type aspirin 81 mg tablet,delayed 81 mg PO DAILY 10/29/18 05/09/23 History release cholecalciferol (vitamin D3) 50 2,000 unit PO DAILY 10/29/18 05/09/23 History mcg (2,000 unit) tablet (Vitamin D3) insulin aspart U-100 100 unit/mL 0 unit subcut DIRECTED 10/29/18 05/09/23 History (3 mL) subcutaneous pen (Novolog FlexPen U-100 Insulin aspart) lisinopril 40 mg tablet 40 mg PO DAILY 10/29/18 05/09/23 History multivitamin 1 tab PO DAILY 10/29/18 05/09/23 History omega 3 350 mg-dha 235 mg-epa 90 1 cap PO DAILY 10/29/18 05/09/23 History mg-fish oil 597 mg capsule,delay rel ([place]-3) sertraline 100 mg tablet 100 mg PO DAILY 10/29/18 05/09/23 History insulin degludec 100 unit/mL (3 64 unit subcut DAILY 10/30/18 05/09/23 History mL) subcutaneous pen (Tresiba FlexTouch U-100 insulin) levothyroxine 150 mcg tablet 150 mcg PO DAILYBB 05/09/23 05/09/23 History (Synthroid) metformin 500 mg tablet,extended 2,000 mg PO DAILY 05/09/23 05/09/23 History release 24 hr pravastatin 40 mg tablet 40 mg PO HS 05/09/23 05/09/23 History Past Med/Surg History Medical History (Updated 05/09/23 @ 23:21 by Ramirez Haskins DO) Choledocholithiasis Asymptomatic now. Ok to proceed with choledocolithiasis. Note HB A1C 9.4. This may play into surgical plans; per surgery team. No additional reccs for now. Hyperlipemia Hypertension Hypothyroid Obesity Type 2 diabetes mellitus insulin dependent Surgical History History of ERCP Social History Smoking Status: Never smoker Hx Alcohol Use: Yes Alcohol type: wine Hx Substance Use: No Preferred Language: Y[place]ut Communication Ability: Effective Trekking Guide Required: No Beliefs That Will Affect Care: None marital status: Current Living Situation: Spouse Current Living Situation Comment: x2 sons & cats Feels Safe at Home: Yes Safety Concerns: Feels Safe At This Time Assistive Devices: Denture - Upper, Glasses and Hospital Bed Review of Systems Review of Systems: Per HPI/Subjective Physical Exam Physical Exam: General: well-appearing, no acute distress HEENT: PERRL, EOMI, conjunctivae clear without injection, anicteric sclerae, moist mucous membranes, clear oropharynx without exudate or erythema Neck: supple, trachea midline, no thyromegaly, no JVD, no cervical lymphadenopathy CV: RRR, normal S1 and S2, no murmurs Resp: CTAB, no increased work of breathing, no crackles or wheezes Abd: Soft, nontender, nondistended, no guarding or rebound, no hepatosplenomegaly MSK: Normal bulk of all four extremities Neuro: AOx3, no focal motor or sensory deficits Skin: no rashes or lesions, warm and dry Ext: no LE peripheral edema or erythema, capillary refill <2s in all four extremities, 2+ LE peripheral pulses b/l Results & Data Results & Data Vital Signs (Past 12 Hours) Vital Signs Temp Pulse Pulse Resp BP BP Pulse Ox 05/09/23 21:10 76 18 93 05/09/23 20:34 05/09/23 20:34 76 17 143/79 H 94 05/09/23 20:34 05/09/23 19:58 36.7 C 81 17 183/85 H 94 O2 Del Method 05/09/23 21:10 Room Air 05/09/23 20:34 Room Air 05/09/23 20:34 Room Air 05/09/23 20:34 Room Air 05/09/23 19:58 Room Air Code Status & VTE Plan VTE Prophylaxis Plan VTE Prophylaxis will be ordered: Yes Supervising Physician Co-Signing Physician Notes Attending addendum: I have physically seen this patient, have supervised the medical residents activities, and agree with the H&P unless as otherwise noted. Assessment and Plan: Accidental insulin overdose- Patient usually takes Tresiba 64 units subcu at 9 AM, and inadvertently took additional 64 units subcu at 7 PM this evening No longer takes metformin Reports her blood sugars tend to average above 200 on a regular basis Admit to monitored bed for frequent blood sugar testing as noted to monitor for hypoglycemia Check hemoglobin A1c Blood sugar on laboratories was 429, which makes it less likely that patient will become hypoglycemic, but will need continued close monitoring Hypertension- Continue lisinopril with hold parameters Hyperlipidemia- Continue pravastatin Remaining orders and notations as noted Resident Activity Tracking Resident Involvement: Resident Care Provided Care Provided: Adult Hospital Medicine
[2023-05-09] MEDS ORDERED: GLUCOSE 10 TAB/TUBE PO PRN (23:59)
[2023-05-09] MEDS ORDERED: GLUCAGON FOR INJ 1 MG VIAL SQ PRN (23:59)
[2023-05-09] MEDS ORDERED: DEXTROSE 50% 50 ML SYRINGE IV PRN (23:59)
[2023-05-09] MEDS ORDERED: CARBOHYDRATES FOR HYPOGLYCEMIA PO PRN (23:59)
[2023-05-09] MEDS ORDERED: GLUCOSE 40% GEL 15 GM TUBE PO PRN (23:59)
--- NOTE | 2023-05-10 04:55 | Billing Data ---
Date of Service May 10, 2023 Coding Level of Care Code 11022 INT INP/OBS CARE
[2023-05-10] MEDS ORDERED: LEVOTHYROXINE SODIUM 150 MCG TABLET PO SCH (06:30)
[2023-05-10] MEDS ORDERED: Nursing to Pharmacy Communication SCH (07:45)
[2023-05-10] MEDS: INSULIN ASPART PER UNIT CHARGE SC SCH ×2 (08:22→12:33)
[2023-05-10] MEDS ORDERED: ASPIRIN 81 MG ECTAB PO SCH (09:00)
[2023-05-10] MEDS ORDERED: SERTRALINE HCL 100 MG TABLET PO SCH (09:00)
[2023-05-10] MEDS ORDERED: lisinopril 40 MG TAB PO SCH ×2 (09:00→21:00)
--- NOTE | 2023-05-10 12:29 | Discharge Summary ---
Discharge Summary Date of Service May 10, 2023 Notes For Next Care Provider Consider GLP-1 agonist-discuss with endocrinology Medication Changes From Visit None Admission HPI Per Admitting Provider 57 yo F with PMH IDDM2, HTN, HLD, hypothyroidism, depression presenting with hyperglycemia. Pt normally takes 64u Tresiba daily at 9 AM along with 1u/3g carb mealtime insulin. This AM she took 64u Tresiba, estimates about 14u at breakfast + 10u at lunch. During evening as she was preparing to take mealtime dinner dose, pt accidentally took 64u Tresiba dose instead at 7:15 PM and realized this shortly afterward. She did not take any further mealtime insulin. Dinner consisted of seafood pasta. Pt tried calling pharmacy and PCP office for assistance and was directed to call poison control who advised she come to ER for glycemic monitoring. She was also advised to consume a sugary beverage, so she had sweetened iced tea. Pt arrived to ER hemodynamically stable around 9 PM. Initial evaluation without any significant lab abnormalities other than BSG- elevated to 324 on admission, BSGs have fluctuated in ER in 300s. No ER interventions done. At present, pt reports no symptoms. She did not have any acute hyper/hypoglycemic symptoms today. Principal Dx & Hospital Course #1 = Principal Diagnosis (1) Insulin overdose: -Insulin overdose with accidental Tresiba 64u dose in evening on top of her usual 64 units in the morning She was admitted for observation and continued to actually have hyperglycemia. She was held from any basal insulin but was given NovoLog supplemental insulin with a carb ratio for her meals Blood sugar was 173 at the time of discharge almost 24 hours from the time of the overdose -Advised to not take any further Tresiba today after discharge unless blood glucose greater than 300 this evening. Then, restart usual Tresiba 64 units to [place] morning -Continue home NovoLog correction factor and carbohydrate ratio -Encouraged her to continue to check her blood glucose levels more frequently as she currently checks them very rarely -Follow-up with endocrinology after discharge and consider GLP-1 agonist for weight loss and to decrease insulin requirement (2) Hyperglycemia: With hyperglycemia here as noted above (3) Type 2 diabetes mellitus: -IDDM2 on Tresiba 64u daily w/ mealtime insulin Patient reports she rarely checks her blood glucose at home She is supposed to be using a correction factor and a carbohydrate ratio with her mealtime insulin but only does a carbohydrate ratio as she does not check her blood sugars Her hemoglobin A1c has never been below 8% she thinks in almost 25 years of having diabetes She does follow with endocrinology in [place]-encouraged her to follow-up and discuss improved management of her diabetes Hemoglobin A1c drawn here but result will not be available until Thursday (4) Hypertension: -BP stable -Continue lisinopril -She reports she does not take aspirin anymore (5) Hypothyroid: -Continue levothyroxine -Follow TSH as an outpatient (6) Hyperlipemia: -Continue pravastatin (7) Depression: -Continue sertraline Plan DVT prophylaxis-ambulation, short stay, none needed Disposition-medically stable for discharge to home Discharge Exam Constitutional WD/WN, vitals as above Respiratory normal respiratory effort, lungs clear to auscultation Cardiovascular RRR, no murmur, no edema Gastrointestinal (Abdomen) normal bowel sounds, soft, nontender, no hepatosplenomegaly Neurologic PERRL, EOMI, accommodation nl, no face palsy, no dysarthria Psychiatric A+Ox3, euthymic affect Updated Medication List Medication Instructions Recorded Confirmed Type aspirin 81 mg tablet,delayed 81 mg PO DAILY 10/29/18 05/09/23 History release cholecalciferol (vitamin D3) 50 2,000 unit PO DAILY 10/29/18 05/09/23 History mcg (2,000 unit) tablet (Vitamin D3) lisinopril 40 mg tablet 40 mg PO DAILY 10/29/18 05/09/23 History multivitamin 1 tab PO DAILY 10/29/18 05/09/23 History omega 3 350 mg-dha 235 mg-epa 90 1 cap PO DAILY 10/29/18 05/09/23 History mg-fish oil 597 mg capsule,delay rel ([place]-3) sertraline 100 mg tablet 100 mg PO DAILY 10/29/18 05/09/23 History insulin degludec 100 unit/mL (3 64 unit subcut DAILY 10/30/18 05/09/23 History mL) subcutaneous pen (Tresiba FlexTouch U-100 insulin) levothyroxine 150 mcg tablet 150 mcg PO DAILYBB 05/09/23 05/09/23 History (Synthroid) pravastatin 40 mg tablet 40 mg PO HS 09/16/23 09/16/23 History insulin aspart U-100 100 unit/mL See Rx Instructions .Route 05/10/23 05/09/23 Rx (3 mL) subcutaneous pen (Novolog .COMPLEX #15 mL FlexPen U-100 Insulin aspart) Hospital Stay Data Consultations 05/09/23 20:20 ED Decision to Admit Stat Pending Results Patient Have Any Pending Studies at Discharge: No Discharge Instructions Given to Patient (Per Discharging Provider) Please check your blood glucose before dinner this evening, at bedtime, and once more at 2:00 AM tonight (set an alarm to wake yourself up). If your blood glucose goes above 300 this evening, please give yourself Tresiba 10 units x 1 tonight. If your blood glucose remains below 300, then continue only your usual Novolog with meals and snacks and then resume your usual Tresiba dose tomorrow morning. If your blood glucose goes below 70, then please eat a sugary snack or take a glucose tablet that can be purchased at the drug store. If that happens, check your blood glucose again 15 min after the snack to ensure it is coming back up. Please talk to your [employer] about starting on an injectable medication for diabetes that will help lower your blood glucose as well as help with weight loss. Total Time Total Time Spent Total Time Spent (In Minutes): 35 minutes Coding Level of Care Code 97870 INP/OBS DISCH >30 MIN Diagnoses Insulin overdose T38.3X1A Hyperglycemia R73.9 Type 2 diabetes mellitus E11.9 Hypertension I10 Hypothyroid E03.9 Hyperlipemia E78.5 Depression F32.9
[2023-05-10] MEDS ORDERED: PRAVASTATIN SOD 40 MG TAB PO SCH (21:00)
[2023-05-11 07:52] LABS: Estimated Average Glucose 255 mg/dl; Hemoglobin A1C 10.5 % (4.5-5.6)
== END 2023-05-10 15:34 | disposition home or self-care (01) ==
LOC: 3W 19:56 → ED 19:56 → SUATTDRO 22:17 → 3W 23:28